=== PATIENT | female | born 2000 | race Caucasian/White ===

== ENCOUNTER 2018-04-13 09:58 | Emergency (ER) | payer BC, SELFPAY ==
[2018-04-13 10:00] VITALS: BP 112/66; PULSE 85; RESP 14; TEMP 37.1; O2SAT 97; BMI 27.4
--- NOTE | 2018-04-13 10:39 | RAD_ITS ---
STUDY: X-RAY - ACUTE ABDOMINAL SERIES REASON FOR EXAM: Female, 17 years old. Abdominal pain, nausea and vomiting TECHNIQUE: Single view of the chest. Supine, and erect view(s) of the abdomen were obtained. COMPARISON: None. FINDINGS: The lungs are clear and expanded. Normal size heart. Normal mediastinum and marta. Normal visualized pulmonary arteries. Normal visualized aortic arch and descending thoracic aorta. There is a non-specific bowel gas pattern. The soft tissue structures of the abdomen and pelvis are unremarkable. Normal visualized osseous structures. RAD/Acute Abdomen Inc Chest IMPRESSION: Normal x-ray examination of the chest, abdomen, and pelvis. Electronically Signed: Flakito Barron DO at 11:42 EST Tel , Service support ,
[2018-04-13 11:04] LABS: Absolute Lymphocyte Count 1.45 X10^3/ul (0.83-4.51); Absolute Neutrophil Count 3.7 X10^3/uL (2.0-7.7); Basophil# 0.02 X10^3/uL; Basophil% 0.3 % (0-1); Eosinophil# 0.06 X10^3/uL; Hematocrit 39.5 % (37-47); Hemoglobin 13.5 g/dl (12.0-15.0); Lymphocyte # 1.45 X10^3/ul (4.0); Lymphocyte % 24.9 % (19-41); Mean Corp Hgb Conc 34.2 g/gl (32-36); Mean Corpuscular Hgb 29.8 pg (27.0-32.0); Mean Corpuscular Volume 87.2 fL (81-99); Mean Platelet Vol. 10.1 fl (6.2-12.0); Monocyte# 0.55 X10^3/uL; Monocyte% 9.5 % (0-10); Neutrophil # 3.73 X10^3/uL (2.7-7.7); Neutrophil % 64.1 % (47-70); Platelet Count 276 K/mm3 (150-450); RBC Distribution Width CV 13.7 % (11.6-14.6); RBC Distribution Width SD 42.7 fl (35.1-43.9); Red Blood Count 4.53 M/mm3 (4.2-5.4); White Blood Count 5.8 K/mm3 (4.4-11.0)
[2018-04-13 11:05] LABS: POSITIVE COUNT NO; POSITIVE DIFFERENTIAL NO; POSITIVE MORPHOLOGY NO
[2018-04-13 11:14] LABS: White Blood Cells 0 SEEN /hpf (0-5)
[2018-04-13 11:14] LABS: Albumin, Serum 3.8 g/dL (3.2-5.0); BUN 14 mg/dL (7-18); BUN/Creat Ratio 16.5 RATIO (10-20); Creatinine, Serum 0.85 mg/dL (0.55-1.02); EST Glomerular Filtration Rate 91 mL/min (>60); Est Glom Filt Rate - Afr Amer 110 mL/min (>60); Estimated Creatinine Clearance 91.93 ml/min; Glucose 80 mg/dL (74-106); Protein, Total 7.3 g/dL (6.4-8.2)
[2018-04-13 11:15] LABS: ALB/GLOB Ratio 1.1 RATIO (0.9-2.4); AST(SGOT) 16 U/L (15-37); Alanine Aminotransfer ALT/SGPT 21 U/L (13-56); Alkaline Phosphatase 83 U/L (45-117); Anion Gap 9 (5-15); Calcium,Total 8.5 mg/dL (8.5-10.1); Chloride 108 mmol/L (98-107); Globulin 3.5 g/dL (2.2-4.2); Lipase 86 U/L (73-393); Potassium 3.3 mmol/L (3.5-5.1); Sodium Level 142 mmol/L (136-145)
[2018-04-13 11:16] LABS: Color, Urine Yellow (Yellow); Glucose, Dipstick Normal (Normal); Leukocyte Esterase-Dipstick Negative /ul (Negative); Nitrite-Dipstick Negative (Negative); Occult Blood-Urine 10 /ul (Negative); Protein-Dipstick 30 mg/dl (Negative); Specific Gravity, Urine 1.025 (1.002-1.030); Urine Bilirubin Dipstick Negative (Negative); Urine Clarity Sl. Cloudy (Clear); Urine Urobilinogen Normal (Normal)
[2018-04-13 11:18] LABS: Internal QC Validated? YES +Cl - CLEAR BKGD; Ketone-Dipstick 150 mg/dl (Negative); Pregnancy, Urine Negative Negative
[2018-04-13 11:22] LABS: Bacteria 1+ /hpf (None Seen); Mucous, Urine 2+ /hpf (<or=2+); Red Blood Cells-Urine 0-5 SEEN /hpf (0-5); Squamous Epithelial Cells - UA 0-5 SEEN /hpf (5-10)
[2018-04-13 12:00] VITALS: BP 95/61; PULSE 58; RESP 12; O2SAT 100
--- NOTE | 2018-04-13 12:54 | ED.VISSUMM ---
- ER Visit Summary Date of Service: 04/13/18 Chief Complaint: Abdominal pain History of Present Illness: The patient is a 17 F who presents with abdominal pain that has been getting worse over the past 3 days. Patient states the pain is over the lower abdomen but worse on the right side. Patient describes the pain as aching. Patient admits to some nausea and vomiting. Patient admits to some watery diarrhea. Patient states she did take some Pepto-Bismol yesterday but vomited shortly afterwards. Patient states she did have an episode of black stools this morning. Patient denies any fevers but admits to subjective chills. Patient admits to some dysuria and urinary frequency. Physical Examination: Vital signs are stable. Patient is afebrile. Patient is in no acute distress. Oral mucosa is pink and moist. Neck is supple. Trachea is midline. There is no JVD noted. Heart was regular rate and rhythm. Lungs are clear and equal bilaterally. Abdomen is soft. There is some mild lower abdominal tenderness. There is no rebound or guarding noted. Cranial nerves II through XII are intact. There are no focal motor or sensory deficits noted. The remaining physical exam is within normal limits. Test Results: Acute abdominal x-rays did not show any acute process. CBC was normal. Basic metabolic profile was within normal limits. Urinalysis does not show any evidence of urinary tract infection. Emergency Department Course and Treatment: Patient felt better on reevaluation. Patient was instructed to start with a liquid diet and advance as tolerated. Patient was instructed to follow-up with her primary care physician in 5-7 days. Patient understood and was agreeable with the plan. All questions were answered. Disposition: Discharge home Impression: Abdominal pain This note was generated with [employer] dictation software. It may contain incorrect words, spelling, and punctuation that were not noted in review of the chart prior to signing ED Disposition - Plan for ED Patient: Disposition: Home or Assisted Living Chief Complaint: Abd Pain Diagnosis: Lower abdominal pain of unknown etiology Instructions: ED Abdominal Pain Unkn Cause Referrals: Manpreet Martinez MD [Primary Care Provider] -
[2018-04-13 13:28] VITALS: BP 95/61; PULSE 56; RESP 16; O2SAT 99
--- OUTSIDE RECORDS SUMMARY | 2018-05-30 06:05 | XMS RPT_ITS ---
:2000 Author Organization OHIP Care Team Providers Name Role Phone KLAUDIA HUGHES ([employer]) Attending Unavailable ZHEN GAMING) Attending Unavailable CURT LOZANO Attending Unavailable KLAUDIA HUGHES ([employer]) Referring Unavailable MERCEDES AGUAYO (YA) Attending Unavailable Royce Kam Attending Unavailable Curt Lozano Primary Care Unavailable PROBLEMS PROBLEMS No Problem Records FoundPROCEDURES PROCEDURES No Procedure Records FoundRESULTS RESULTS PROGRESS Observed: 04/13/2018 Status: COMPLETED Source: [place] 5:44 PM [facility] REPOSITORY O ID: [id number] Author: Danita Yeung Service: (none) Author Type: Physician Pediatric Intensive Physician Type: Progress Notes Filed: 04/13/2018 5:48 PM Note Text: 04/13/2018 No chief complaint on file. SUBJECTIVE: This is a 17 year old that is here today for Complaint(s) of lower abdominal pain x 3-4 days. Overall worsening. + RLQ >left. + nausea, vomiting. + diarrhea, 1 episdoe of black tarry stools- but did take a pepto bismol (however vomited immediately after taking). Denies fever/chills, dysuria, urinary frequency. + diminished appetite. No sick contacts. PAST MEDICAL HISTORY Diagnosis Date - Menarche 11/2009 First menstrual period - PMH - PAST MEDICAL HISTORY OF 06/05 NORMAL COLOR VISION ALLERGIES Patient has no known allergies. MEDICATIONS Current Outpatient Prescriptions: Desogestrel-Ethinyl Estradiol (APRI) 0.15-0.03 mg per tablet Take 1 tablet by mouth once daily. No current facility-administered medications for this visit. SOCIAL HISTORY Social History Marital status: Single Spouse name: Years of education: Number of children: Social History Main Topics Smoking status: Current Some Day Smoker Packs/day: 0.00 Years: 0.00 Smokeless tobacco: Never Used Comment: Mom smokes outside or another room Alcohol use: No Drug use: No Sexual activity: Yes REVIEW OF SYSTEMS All other reviewed and negative other than HPI. OBJECTIVE: LMP 03/24/2018 APPEARANCE alert, in no acute distress, well-hydrated, well nourished. ABDOMEN bowel sounds normoactive, no bruits, soft, + RLQ TTP with rebound. + McBurney's. Negative Kellogg's. Mild LLQ TTP. non-distended, without organomegaly or palpable masses, no tenderness to palpation ASSESSMENT/PLAN: 1. RLQ abdominal pain - ICD9: 789.03, ICD10: R10.31 Differential Diagnosis includes Appendicitis vs gastroenteritis Referral to ER for higher level of care The patient indicates understanding of these issues and agrees with the plan. Mom will take patient. Danita Yeung PA-C EMERGENCY DEPARTMENT Observed: 04/13/2018 Status: F Source: [place] SUMMARY 1:01 PM REPOSITORY [facility] Medical Records Department [address] [place] [id number] Emergency Department Summary 04/13/18 1254 MR#: [id number] Acct: [id number] Name: QUYEN HOWELL Rep #: [id number] : 2000 17 From: Royce Kam DO PCP: Curt Lozano MD Status: REG ER - ER Visit Summary Date of Service: 04/13/18 Chief Complaint: Abdominal pain History of Present Illness: The patient is a 17 F who presents with abdominal pain that has been getting worse over the past 3 days. Patient states the pain is over the lower abdomen but worse on the right side. Patient describes the pain as aching. Patient admits to some nausea and vomiting. Patient admits to some watery diarrhea. Patient states she did take some Pepto-Bismol yesterday but vomited shortly afterwards. Patient states she did have an episode of black stools this morning. Patient denies any fevers but admits to subjective chills. Patient admits to some dysuria and urinary frequency. Physical Examination: Vital signs are stable. Patient is afebrile. Patient is in no acute distress. Oral mucosa is pink and moist. Neck is supple. Trachea is midline. There is no JVD noted. Heart was regular rate and rhythm. Lungs are clear and equal bilaterally. Abdomen is soft. There is some mild lower abdominal tenderness. There is no rebound or guarding noted. Cranial nerves II through XII are intact. There are no focal motor or sensory deficits noted. The remaining physical exam is within normal limits. Test Results: Acute abdominal x-rays did not show any acute process. CBC was normal. Basic metabolic profile was within normal limits. Urinalysis does not show any evidence of urinary tract infection. Emergency Department Course and Treatment: Patient felt better on reevaluation. Patient was instructed to start with a liquid diet and advance as tolerated. Patient was instructed to follow-up with her primary care physician in 5-7 days. Patient understood and was agreeable with the plan. All questions were answered. Disposition: Discharge home Impression: Abdominal pain This note was generated with MagicEvent dictation software. It may contain incorrect words, spelling, and punctuation that were not noted in review of the chart prior to signing ED Disposition - Plan for ED Patient: Disposition: Home or Assisted Living Chief Complaint: Abd Pain Diagnosis: Lower abdominal pain of unknown etiology Instructions: ED Abdominal Pain Unkn Cause Referrals: Curt Lozano MD [Primary Care Provider] - What to do if you have Problems For any increased pain, shortness of breath, bleeding, nausea or vomiting, chest pain, or any unexpected problems, contact your Primary Care Provider. Call [facility] ([phone]) or report to the closest Emergency Room. Call 911 if necessary. 04/13/18 1301 <Electronically signed by Royce Kam DO> Date Royce Kam DO Cosigner Signature (If Indicated): Date CC: Curt Lozano MD URINALYSIS, COMPLETE Collected: 04/13/2018 Status: F Source: [place] 11:03 AM REPOSITORY Order Comment: How was Urine Obtained? CLEAN CATCH TYPE CODE TESTS RESULT OUT OF RANGE REFERENCE UNITS LAB L400.3000 Yellow COLOR Normal Yellow LAB L400.3050 Clear Normal CLARITY Sl. Cloudy LAB L400.3200 Normal mg/dl Normal GLUCOSE, UR Normal LAB L400.3300 Negative mg/dL Normal BILIRUBIN URINE Negative LAB L400.3400 Negative mg/dl High KETONE UR 150 Result Comment: CRITICAL VALUE *H CRITICAL VALUE VERIFIED. CALLED TO PRATIK DEL TORO 04/13/18 1117 Boogie Franks. RESULTS READ BACK BY SAME. LAB L400.3465 1.002-1.030 Normal SP.GR. DIPSTX 1.025 LAB L400.3550 5.0 - 8.0 pH Normal UR 6.0 LAB L400.3600 Negative mg/dl High 30 PROT DIPSTX LAB L400.3700 Normal mg/dl Normal UROBILI Normal LAB L400.3750 Negative Normal NITRITE UR Negative LAB L400.3780 Negative /ul High 10 OCCULT BLOOD-UR LAB L400.3800 Negative /ul Normal LEUK ESTERASE Negative LAB L400.4050 0-5 /hpf 0 Normal WBC SEEN LAB L400.4100 0-5 /hpf Normal RBC-UA 0-5 SEEN LAB L400.4150 5-10 /hpf Normal SQUAM EPI 0-5 SEEN LAB L400.4300 None Seen /hpf 1+ Normal BACTERIA LAB L400.4350 <or=2+ /hpf 2+ Normal MUCUS, URINE Performed By: #### L400.0001 #### [facility] [address] [place], [place], [address] ,URINE Collected: 04/13/2018 Status: F Source: [place] 11:03 AM REPOSITORY TYPE CODE TESTS RESULT OUT OF REFERENCE UNITS RANGE LAB L400.8000 Negative Normal HCGUQUAL Negative Result Comment: Very dilute urine specimens, as indicated by a low specific gravity, may not contain apprenticeship representative levels of hCG. If is still suspected, a first morning urine specimen should be collected 48 hours later and tested. Performed By: #### L400.7600 #### [facility] [address], [address] CBC W/DIFF, AUTOMATED Collected: 04/13/2018 Status: F Source: [place] 10:50 AM REPOSITORY TYPE CODE TESTS RESULT OUT OF RANGE REFERENCE UNITS LAB L100.1000 4.4-11.0 K/mm3 Normal WBC 5.8 LAB L100.1200 4.2-5.4 M/mm3 Normal RBC 4.53 LAB L100.1300 12.0-15.0 g/dl Normal HGB 13.5 LAB L100.1400 37-47 % Normal HCT 39.5 LAB L100.1500 81-99 fL Normal MCV 87.2 LAB L100.1600 27.0-32.0 pg Normal MCH 29.8 LAB L100.1700 32-36 g/gl Normal MCHC 34.2 LAB L100.1810 11.6-14.6 % Normal RDW CV 13.7 LAB L100.1820 35.1-43.9 fl Normal RDW SD 42.7 LAB L100.1900 150-450 K/mm3 Normal PLT 276 LAB L100.2000 6.2-12.0 fl Normal MPV 10.1 LAB L100.2100 47-70 % Normal NEUT% 64.1 LAB L100.2200 19-41 % Normal LY% 24.9 LAB L100.2300 0-10 % Normal MONO% 9.5 LAB L100.2400 0-5 % Normal EO% 1.0 LAB L100.2500 0-1 % Normal BASO% 0.3 LAB L100.2550 0.0-0.9 % Normal IM GRAN % 0.200 Result Comment: IG% - Immature Granulocytes (promyelocytes, myelocytes and metamyelocytes) > 1% indicates that a LEFT SHIFT is Present. LAB L100.2620 2.0-7.7 X10 3/uL Normal Absolute Neut 3.7 LAB L100.2720 0.83-4.51 X10 3/ul Normal Absolute Lymph 1.45 Performed By: #### L100.0100 #### [facility] [address] [place], [place], [address] COMPREHENSIVE METABOLIC Collected: 04/13/2018 Status: F Source: [facility] 10:50 AM REPOSITORY TYPE CODE TESTS RESULT OUT OF RANGE REFERENCE UNITS LAB L501.0100 74-106 mg/dL Normal GLU 80 Result Comment: Please note revised GLUCOSE reference range effective 2017. LAB L501.1000 7-18 mg/dL Normal BUN 14 LAB L501.1100 0.55-1.02 mg/dL Normal CREAT,SERUM 0.85 Result Comment: The validity of the calculated GFR AND GFRAA in patients over 70 years has not been determined. Clinical correlation is essential. LAB L501.1110 >60 mL/min Normal EST GFR 91 Result Comment: Non- GFR Calc LAB L501.1115 >60 mL/min Normal EST GFR - AA 110 Result Comment: GFR Calc LAB L501.1255 ml/min Normal Estimated CRCL 91.93 LAB L501.1300 10-20 RATIO Normal BUN/CRE 16.5 LAB L501.1500 6.4-8. g/dL Normal 2 T PROT 7.3 LAB L501.1800 3.2-5. g/dL Normal 0 ALB 3.8 LAB L501.1950 2.2-4. g/dL Normal 2 GLOB 3.5 LAB L501.2000 0.9-2. RATIO Normal 4 A/G 1.1 LAB L501.2200 8.5-10 mg/dL Normal .1 CA 8.5 LAB L501.4100 15-37 U/L Normal AST 16 LAB L501.4305 45-117 U/L Normal ALK P 83 LAB L501.4405 13-56 U/L Normal ALT 21 LAB L501.4600 0.20-1 mg/dL Normal .00 T BILI 0.50 LAB L501.5300 136-14 mmol/L Normal 5 NA 142 LAB L501.5600 3.5-5. mmol/L Low 1 K 3.3 LAB L501.5900 98-107 mmol/L High CL 108 LAB L501.6100 21.0-3 mmol/L Normal 2.0 CO2 25.0 LAB L501.6200 5-15 Normal GAP 9 Performed By: #### L500.4050, L501.2450 #### [facility] [address] [place], [place], [address] LIPASE Collected: 04/13/2018 Status: F Source: [place] 10:50 AM REPOSITORY TYPE CODE TESTS RESULT OUT OF RANGE REFERENCE UNITS LAB L501.2450 73-393 U/L Normal LIPASE 86 Performed By: #### L500.4050, L501.2450 #### [facility] [address] [place], [address] ACUTE ABDOMEN INC Observed: 04/13/2018 Status: F Source: [place] 10:40 AM [facility] REPOSITORY [facility] Imaging Services [address] [place] [address] Acute Abdomen Inc Chest MR#: [id number] Acct: [id number] Name: QUYEN HOWELL Rep #: [id number] : 2000 F 17 From: Flakito Barron DO PCP: Curt Lozano MD Status: REG ER Study: Acute Abdomen Inc Chest Date of Exam: 04/13/18 Exam# [id number] Ordering Dr: Royce Kam DO STUDY: X-RAY - ACUTE ABDOMINAL SERIES REASON FOR EXAM: Female, 17 years old. Abdominal pain, nausea and vomiting TECHNIQUE: Single view of the chest. Supine, and erect view(s) of the abdomen were obtained. COMPARISON: None. FINDINGS: The lungs are clear and expanded. Normal size heart. Normal mediastinum and marta. Normal visualized pulmonary arteries. Normal visualized aortic arch and descending thoracic aorta. There is a non-specific bowel gas pattern. The soft tissue structures of the abdomen and pelvis are unremarkable. Normal visualized osseous structures. RAD/Acute Abdomen Inc Chest IMPRESSION: Normal x-ray examination of the chest, abdomen, and pelvis. Electronically Signed: Flakito Barron DO at 11:42 EST Tel , Service support , CC: Royce Kam DO; Curt Lozano MD Journe[employer]: Signed CNOV Observed: 04/13/2018 Status: COMPLETED Source: [place] 9:30 AM [facility] REPOSITORY Office Visit (WSTR) SANDRAQUYEN BOYKIN ([id number]) 2000 F Date Time Provider Department 04/13/18 9:30 AM DANITA YEUNG) [facility] During your visit today, we recorded the following information about you: Danita Yeung PA-C 04/13/2018 5:48 PM Signed 04/13/2018 No chief complaint on file. SUBJECTIVE: This is a 17 year old that is here today for Complaint(s) of lower abdominal pain x 3-4 days. Overall worsening. + RLQ >left. + nausea, vomiting. + diarrhea, 1 episdoe of black tarry stools-but did take a pepto bismol (however vomited immediately after taking). Denies fever/chills, dysuria, urinary frequency. + diminished appetite. No sick contacts. PAST MEDICAL HISTORY Diagnosis Date - Menarche 11/2009 First menstrual period - PMH - PAST MEDICAL HISTORY OF 06/05 NORMAL COLOR VISION ALLERGIES Patient has no known allergies. MEDICATIONS Current Outpatient Prescriptions: Desogestrel-Ethinyl Estradiol (APRI) 0.15-0.03 mg per tablet Take 1 tablet by mouth once daily. No current facility-administered medications for this visit. SOCIAL HISTORY Social History Marital status: Single Spouse name: Years of education: Number of children: Social History Main Topics Smoking status: Current Some Day Smoker Packs/day: 0.00 Years: 0.00 Smokeless tobacco: Never Used Comment: Mom smokes outside or another room Alcohol use: No Drug use: No Sexual activity: Yes REVIEW OF SYSTEMS All other reviewed and negative other than HPI. OBJECTIVE: LMP 03/24/2018 APPEARANCE alert, in no acute distress, well-hydrated, well nourished. ABDOMEN bowel sounds normoactive, no bruits, soft, + RLQ TTP with rebound. + McBurney's. Negative Kellogg's. Mild LLQ TTP. non-distended, without organomegaly or palpable masses, no tenderness to palpation ASSESSMENT/PLAN: 1. RLQ abdominal pain - ICD9: 789.03, ICD10: R10.31 Differential Diagnosis includes Appendicitis vs gastroenteritis Referral to ER for higher level of care The patient indicates understanding of these issues and agrees with the plan. Mom will take patient. Danita Yeung PA-C Referring Provider: SELF [[id number]] Allergies As of Date: 04/13/2018 (No Known Allergies) Date Reviewed: 04/07/2018 Reviewed by: Mia Dave LPN - Fully Assessed Primary Visit Diagnosis:RLQ abdominal pain [R10.31] Prescriptions as of 04/13/2018 Sig: DESOGESTREL 0.15 MG-ETHINYL E* Take 1 tablet by mouth once d* Problem List As Of Date 04/13/2018 Noted Resolved Depression with anxiety [F41.8] INVALID FOR* PMDD (premenstrual dysphoric disorder) [F32.81] INVALID FOR* Encounter Status:Closed by DANITA YEUNG PA-C on 04/13/18 PROGRESS Observed: 04/07/2018 Status: COMPLETED Source: [place] 3:14 PM [facility] REPOSITORY O ID: [id number] Author: Mercedes Castillo) [place] Service: (none) Author Type: Nurse Practitioner Type: Progress Notes Filed: 04/07/2018 4:25 PM Note Text: Quyen Howell is a 17 year old, Obstetric History No data available who presents today for contraception. Patient's last menstrual period was 03/24/2018. Periods are regular but having severe PMS the week before and resolving with cycle. She does have some anxiety/depression. PAST MEDICAL HISTORY Diagnosis Date - Menarche 11/2009 First menstrual period - PMH - PAST MEDICAL HISTORY OF 06/05 NORMAL COLOR VISION PAST SURGICAL HISTORY Procedure Laterality Date - NONE Social History Marital status: Single Spouse name: Years of education: Number of children: Social History Main Topics Smoking status: Current Some Day Smoker Packs/day: 0.00 Years: 0.00 Smokeless tobacco: Never Used Comment: Mom smokes outside or another room Alcohol use: No Drug use: No Sexual activity: Yes ALLERGIES No Known Allergies No current outpatient prescriptions on file prior to visit. No current facility-administered medications on file prior to visit. SUBJECTIVE Sexually active: Yes Patient currently interested in: oral contraceptives Date of last test: Not applicable Relevant Past Medical History: No relevant past medical history PHYSICAL EXAMINATION: BP 122/64 Wt 162 lb 3.2 oz (73.6 kg) LMP 03/24/2018 BMI 27.52 kg/m? GENERAL APPEARANCE: Well appearing, alert, in no acute distress, well-hydrated, well nourished. SKIN: Skin color, texture, turgor normal, no suspicious rashes or lesions LUNGS: normal inspiratory rate NEURO: Awake, alert and oriented x 3, Normal gait and No involuntary motions. IMPRESSION: contraceptive counseling and advice, Information of other contraceptive measures, Prescription for oral contraceptives PLAN Hormonal control as prescribed Return to office in 3 months for blood pressure check and follow-up control Contraceptive counseling -will consider adding antidepressed if symptoms are not improved -spend 30 mins of visit counseling pt I have reviewed and updated past medical and surgical history, medications and allergies. JC CoffmanOV Observed: 04/07/2018 Status: COMPLETED Source: [place] 3:00 PM [facility] REPOSITORY Office Visit (WOOB) QUYEN HOWELL ([id number]) 2000 F Date Time Provider Department 04/07/18 3:00 PM MERCEDES AGUAYO (YA) [facility] During your visit today, we recorded the following information about you: Blood pressure Weight Last Period 122/64 73.6 kg 03/24/18 Mercedes Aguayo APRN.CNP 04/07/2018 4:25 PM Signed Quyen Pena Lynda is a 17 year old, Obstetric History No data available who presents today for contraception. Patient's last menstrual period was 03/24/2018. Periods are regular but having severe PMS the week before and resolving with cycle. She does have some anxiety/depression. PAST MEDICAL HISTORY Diagnosis Date - Menarche 11/2009 First menstrual period - PMH - PAST MEDICAL HISTORY OF 06/05 NORMAL COLOR VISION PAST SURGICAL HISTORY Procedure Laterality Date - NONE Social History Marital status: Single Spouse name: Years of education: Number of children: Social History Main Topics Smoking status: Current Some Day Smoker Packs/day: 0.00 Years: 0.00 Smokeless tobacco: Never Used Comment: Mom smokes outside or another room Alcohol use: No Drug use: No Sexual activity: Yes ALLERGIES No Known Allergies No current outpatient prescriptions on file prior to visit. No current facility-administered medications on file prior to visit. SUBJECTIVE Sexually active: Yes Patient currently interested in: oral contraceptives Date of last test: Not applicable Relevant Past Medical History: No relevant past medical history PHYSICAL EXAMINATION: BP 122/64 Wt 162 lb 3.2 oz (73.6 kg) LMP 03/24/2018 BMI 27.52 kg/m? GENERAL APPEARANCE: Well appearing, alert, in no acute distress, well-hydrated, well nourished. SKIN: Skin color, texture, turgor normal, no suspicious rashes or lesions LUNGS: normal inspiratory rate NEURO: Awake, alert and oriented x 3, Normal gait and No involuntary motions. IMPRESSION: contraceptive counseling and advice, Information of other contraceptive measures, Prescription for oral contraceptives PLAN Hormonal control as prescribed Return to office in 3 months for blood pressure check and follow-up control Contraceptive counseling -will consider adding antidepressed if symptoms are not improved -spend 30 mins of visit counseling pt I have reviewed and updated past medical and surgical history, medications and allergies. Mercedes Aguayo APRN.YA Aguayo APRN.CNP 04/07/2018 3:55 PM Signed Oral Contraceptives: The Pill Beginning the Pill Pills come in either a 21 day pack or a 28 day pack. With the 21 day pack you will take one pill for 21 days then no pill for 7 days, during which time you will have what is known as withdrawal bleeding. The 28 day pack allows you to take a pill every day of the cycle with no interruptions. The first 21 pills are the pills with the active ingredients and the last 7 are the nonmedical pills (placebo) or they may contain iron. There will be bleeding during the week you are taking the nonmedical pills. The advantage to the 28 day pack is that you don?t have to keep track of when you stopped the pill. ? Unless otherwise instructed, you should start your pills the Tuesday following your first day of bleeding with your next period (if your period starts on a Tuesday, you should start pills the same day) ? Read your information packet that comes with the pills. Pill Benefits The pill is the most popular method of reversible control being used today. Millions of women rely on oral contraceptives as their control method. It is important to have an examination by your physician to determine if the pill is safe for you. There are several advantages associated with the pill: it is 97-98% effective; may improve acne; periods are more regular and less painful; there is less iron deficiency anemia in pill users. terminal manager use is associated with a decreased incidence of ovarian and uterine cancer. There is also no evidence that the pill increases the incidence of any cancer. How Oral Contraceptives Work Oral contraceptives come in two varieties. One is the combination pill which contains both estrogen and progesterone. Combination pills are considered 98-99% effective in preventing . This pill comes in either monophasic, which delivers the same amount of estrogen and progesterone throughout the cycle; and triphasic, which try tries to mimic the normal hormone cycle by changing the levels of the hormones in the pills during the month. There is no real advantage to taking the one over the other. The other type of pill only contains progesterone. It is best used for women who can?t take estrogen. This type of pill is slightly less effective than the combination pill in preventing . Oral contraceptives prevent ovulation (release of an egg from the ovary) by suppressing the pituitary gland?s action. The pill does NOT prevent sexually transmitted disease. Obtaining a Prescription ? It is important to see your doctor before starting oral contraceptives so that you can have a full medical history taken and a physical examination given. Certain medical conditions may make the pill inappropriate for you, therefore it is very important to be honest and as complete as possible with the information you share with your doctor. The types of predisposing factors which would make the pill a poor choice of control would include: ? History of blood clots ? Stroke ? Serious liver disease or impaired liver function ? Unexplained vaginal bleeding or ? Cancer of the reproductive system ? Active gall bladder disease ? Hypertension Possible Side Effects It can take up to three months for your body to become adjusted to the pill. The more common side effects experienced at this time are: breakthrough spotting or bleeding, which is bleeding at any other time other than when you should be having a period; nausea or vomiting; breast tenderness; and mild fluid retention. There is no penitentiary weight gain with the use of the pill. Breakthrough bleeding is the most common complaint of new pill users. There is no way to predict who will have it and there is no way of preventing it. Breakthrough bleeding usually subsides on its own with no further treatment after the first three months of taking the pill. If these symptoms continue to occur after the first three months you should check with your physician to see if there is any physical cause and possibly change to another control pill. Problems: 1. Missed 1 pill: Take 2 pills the next day. 2. Missed 2 pills: Take 2 pills the next day and 2 pills the following day. Also use another form of control (condoms) along with the pill for the rest of the month. 3. Missed 3 or more pills: You have two choices. You can take two pills each day until you are on schedule, plus use an additional form of control along with the pill for the rest of the month. Or you can stop the pill and start a completely new pack of pills the next Tuesday. You must use another form of control with the pill for at least the first two weeks of the new pack. 4. You?re ill and you have been vomiting or have diarrhea: You must use another form of control with the pill since the pill may not be fully absorbed during your illness. Continue to use the added control until the end of the cycle. 5. Desire to become : Stop using the pill for one month before trying to become . 6. Taking other medications: The control pill is less effective when you take the antibiotic Rifampin, epilepsy (seizure) drugs such as phenytoin, carbamazepine, phenobarbital, topiramate and some medications for HIV. Let your doctor know if you start taking any of these medications while on the pill. Symptoms to Notify Your Doctor with Immediately: 1. Pain in your chest or legs 2. Continuous blurred vision 3. Severe headaches 4. Slurred speech 5. Tingling or weakness on one side of your body 6. Shortness of breath 7. Swelling of one leg Refills of Control Pills You need to see a doctor every year for a refill of your prescription. This is necessary in order that your health can be monitored closely while you are taking control pills. If your prescription should before your next scheduled appointment you can usually get a one month extension from your doctors office if you call during regular business hours about one week before you need to start the new package of pills. This allows the physician to refer to your chart for necessary health information. Referring Provider: SELF [[id number]] Allergies As of Date: 04/07/2018 (No Known Allergies) Date Reviewed: 04/07/2018 Reviewed by: Mia Dave LPN - Fully Assessed Reason for Visit: Discussion [813] Cmt: severe PMS Primary Visit Diagnosis:Encounter for initial prescription of contraceptive pills [Z30.011] Other Visit Diagnosis:PMDD (premenstrual dysphoric disorder) [F32.81] Order(s):Desogestrel-Ethinyl Estradiol (APRI) 0.15-0.03 mg per tabletTake 1 tablet by mouth once daily.Disp: 1 PackageRfl: 3 Prescriptions as of 04/07/2018 Sig: DESOGESTREL 0.15 MG-ETHINYL E* Take 1 tablet by mouth once d* Problem List As Of Date 04/07/2018 Noted Resolved Depression with anxiety [F41.8] INVALID FOR* PMDD (premenstrual dysphoric disorder) [F32.81] INVALID FOR* Other instructions from your clinician: Oral Contraceptives: The Pill Beginning the Pill Pills come in either a 21 day pack or a 28 day pack. With the 21 day pack you will take one pill for 21 days then no pill for 7 days, during which time you will have what is known as withdrawal bleeding. The 28 day pack allows you to take a pill every day of the cycle with no interruptions. The first 21 pills are the pills with the active ingredients and the last 7 are the nonmedical pills (placebo) or they may contain iron. There will be bleeding during the week you are taking the nonmedical pills. The advantage to the 28 day pack is that you don?t have to keep track of when you stopped the pill. ? Unless otherwise instructed, you should start your pills the Tuesday following your first day of bleeding with your next period (if your period starts on a Tuesday, you should start pills the same day) ? Read your information packet that comes with the pills. Pill Benefits The pill is the most popular method of reversible control being used today. Millions of women rely on oral contraceptives as their control method. It is important to have an examination by your physician to determine if the pill is safe for you. There are several advantages associated with the pill: it is 97-98% effective; may improve acne; periods are more regular and less painful; there is less iron deficiency anemia in pill users. terminal manager use is associated with a decreased incidence of ovarian and uterine cancer. There is also no evidence that the pill increases the incidence of any cancer. How Oral Contraceptives Work Oral contraceptives come in two varieties. One is the combination pill which contains both estrogen and progesterone. Combination pills are considered 98-99% effective in preventing . This pill comes in either monophasic, which delivers the same amount of estrogen and progesterone throughout the cycle; and triphasic, which try tries to mimic the normal hormone cycle by changing the levels of the hormones in the pills during the month. There is no real advantage to taking the one over the other. The other type of pill only contains progesterone. It is best used for women who can?t take estrogen. This type of pill is slightly less effective than the combination pill in preventing . Oral contraceptives prevent ovulation (release of an egg from the ovary) by suppressing the pituitary gland?s action. The pill does NOT prevent sexually transmitted disease. Obtaining a Prescription ? It is important to see your doctor before starting oral contraceptives so that you can have a full medical history taken and a physical examination given. Certain medical conditions may make the pill inappropriate for you, therefore it is very important to be honest and as complete as possible with the information you share with your doctor. The types of predisposing factors which would make the pill a poor choice of control would include: ? History of blood clots ? Stroke ? Serious liver disease or impaired liver function ? Unexplained vaginal bleeding or ? Cancer of the reproductive system ? Active gall bladder disease ? Hypertension Possible Side Effects It can take up to three months for your body to become adjusted to the pill. The more common side effects experienced at this time are: breakthrough spotting or bleeding, which is bleeding at any other time other than when you should be having a period; nausea or vomiting; breast tenderness; and mild fluid retention. There is no penitentiary weight gain with the use of the pill. Breakthrough bleeding is the most common complaint of new pill users. There is no way to predict who will have it and there is no way of preventing it. Breakthrough bleeding usually subsides on its own with no further treatment after the first three months of taking the pill. If these symptoms continue to occur after the first three months you should check with your physician to see if there is any physical cause and possibly change to another control pill. Problems: 1. Missed 1 pill: Take 2 pills the next day. 2. Missed 2 pills: Take 2 pills the next day and 2 pills the following day. Also use another form of control (condoms) along with the pill for the rest of the month. 3. Missed 3 or more pills: You have two choices. You can take two pills each day until you are on schedule, plus use an additional form of control along with the pill for the rest of the month. Or you can stop the pill and start a completely new pack of pills the next Tuesday. You must use another form of control with the pill for at least the first two weeks of the new pack. 4. You?re ill and you have been vomiting or have diarrhea: You must use another form of control with the pill since the pill may not be fully absorbed during your illness. Continue to use the added control until the end of the cycle. 5. Desire to become : Stop using the pill for one month before trying to become . 6. Taking other medications: The control pill is less effective when you take the antibiotic Rifampin, epilepsy (seizure) drugs such as phenytoin, carbamazepine, phenobarbital, topiramate and some medications for HIV. Let your doctor know if you start taking any of these medications while on the pill. Symptoms to Notify Your Doctor with Immediately: 1. Pain in your chest or legs 2. Continuous blurred vision 3. Severe headaches 4. Slurred speech 5. Tingling or weakness on one side of your body 6. Shortness of breath 7. Swelling of one leg Refills of Control Pills You need to see a doctor every year for a refill of your prescription. This is necessary in order that your health can be monitored closely while you are taking control pills. If your prescription should before your next scheduled appointment you can usually get a one month extension from your doctors office if you call during regular business hours about one week before you need to start the new package of pills. This allows the physician to refer to your chart for necessary health information. Prescriptions ordered this encounter Disp Refills Start End DESOGESTREL 0.15 MG-ETHINYL ESTRADIO* 1 Pa* 3 04/07/2018 Route: ORAL Sig: Take 1 tablet by mouth once daily. Disposition: Return for 3-4 month med check. Follow-up and Disposition History Recorded Encounter Status:Closed by MERCEDES AGUAYO on 04/07/18 PROGRESS Observed: 02/17/2018 Status: COMPLETED Source: [place] 4:07 PM [facility] REPOSITORY HNO ID: [id number] Author: Jennifer Camilo RN Service: (none) Author Type: Registered Nurse Type: Progress Notes Filed: 02/17/2018 4:11 PM Note Text: Patient presents for reading of PPD test administered 71.5 hours ago. Results: no errythema or induration Jennifer Camilo RN CNNURSE Observed: 02/17/2018 Status: COMPLETED Source: [place] 4:00 PM [facility] REPOSITORY Nurse Visit (PEDSWS) QUYEN HOWELL ([id number]) 2000 F Date Time Provider Department 02/17/18 4:00 PM [facility] During your visit today, we recorded the following information about you: Jennifer Camilo RN, RN 02/17/2018 4:08 PM Signed Patient presents for reading of PPD test administered 71.5 hours ago. Results: no errythema or induration KATEY Santacruz RN, RN 02/17/2018 4:11 PM Signed Patient presents for reading of PPD test administered 71.5 hours ago. Results: no errythema or induration Jennifer Camilo RN Referring Provider: SELF [[id number]] Allergies As of Date: 02/17/2018 (No Known Allergies) Date Reviewed: 01/30/2018 Reviewed by: Simi Emmanuel MA - Fully Assessed Reason for Visit: PPD Read [3594] Cmt: negative Reason For Visit History Recorded Primary Visit Diagnosis:Screening-pulmonary TB [Z11.1] Problem List As Of Date 02/17/2018 Noted Resolved Depression with anxiety [F41.8] INVALID FOR* Visit Notes: >> Jennifer Camilo RN TueFeb 17, 2018 4:06 PM Status: Signed Patient presents for reading of PPD test administered 71.5 hours ago. Results: no errythema or induration Jennifer Camilo RN Letter Text [place] Curt Lozano M.D. Department of Pediatrics [address] [place] [address] February 17, 2018 Quyen Howell 2000 To whom it may concern: PPD negative today. Sincerely, Yoshi Bonilla RN Encounter Status:Closed by JENNIFER CAMILO on 02/17/18 CNNURSE Observed: 02/14/2018 Status: COMPLETED Source: [place] 4:00 PM [facility] REPOSITORY Nurse Visit (PEDSWS) QUYEN HOWELL ([id number]) 2000 F Date Time Provider Department 02/14/18 4:00 PM NURSE/[facility] P[facility] During your visit today, we recorded the following information about you: Referring Provider: SELF [[id number]] Allergies As of Date: 02/14/2018 (No Known Allergies) Date Reviewed: 01/30/2018 Reviewed by: Simi Emmanuel MA - Fully Assessed Primary Visit Diagnosis:Encounter for screening for respiratory tuberculosis [Z11.1] Order(s):PPD (TB INTRADERMAL 90053) B/O [1385620] Order #: [id number] Problem List As Of Date 02/14/2018 Noted Resolved Depression with anxiety [F41.8] INVALID FOR* Encounter Status:Closed by SIMI EMMANUEL MA on 02/14/18 PROGRESS Observed: 01/30/2018 Status: COMPLETED Source: [place] 4:42 PM [facility] REPOSITORY HNO ID: [id number] Author: Simi Emmanuel MA Service: (none) Author Type: (none) Type: Progress Notes Filed: 02/10/2018 7:04 PM Note Text: 17 year old female here for INACTIVATED INFLUENZA VACCINE. [id number] Season Patient is identified by name and date of : Yes [] CONTRAINDICATIONS color enhanced section Age less than 6 months? No Allergy to eggs, chicken, chicken feathers, or chicken dander? No Allergy to thimerosal (a preservative) or formaldehyde, gelatin? No History of severe reaction to any vaccine component or a previous dose of influenza vaccination? No History of Guillain-Topmost Syndrome within 6 weeks after a previous influenza vaccine? No Patient is not moderately or severely ill? No Current temperature greater or equal to 100.4F? No History of Bone Marrow Transplant prior 6 months or solid organ transplant in the past 3 months ? No History of fainting after a prior injection or medical procedure? No- ? If patient has fainted in the past, the CDC recommends sitting or lying down for 15 minutes after the vaccination. [] VERIFICATION color enhanced section Was the answer Yes for any of the above contraindications? No contraindications present. Acceptable to proceed with vaccine. Patient/guardian agrees the above answers are true to the best of their knowledge? Yes Flu vaccine information sheet given? Yes [facility] of immunizations adminstered today. Simi Emmanuel MA Patient age: [age] year old For The 3157-4300 Flu Season 6-35 months old: Fluzone 0.25 ml - IM (Preservative Free) 3 years of age: Fluzone 0.5 ml - IM (Preservative Free) 3 years and older: Fluzone 0.5 ml- IM-(with Preservatives) 65+ years old: 2-49 years old Fluzone High-Dose 0.5 ml - IM (Preservative Free) FLUMIST- intranasal REMEMBER: If patient is less than 9 years of age and this is the first vaccine of Influenza to be received in any flu season, they should receive a second dose in one months time. PROGRESS Observed: 01/30/2018 Status: COMPLETED Source: [place] 4:00 PM [facility] REPOSITORY HNO ID: [id number] Author: Curt Lozano Service: (none) Author Type: Physician Type: Progress Notes Filed: 02/10/2018 7:04 PM Note Text: 17-year-old female with a history of depression presents to the office today for concerns of mood. Has graduated high school States she is feeling very anxious about her future Recently lost her grandfather very quickly and acutely to ALS PHQ-9: 8 Andrade anxiety inventory: 36 Andrade depression inventory: 27 ACTIVE PROBLEM LIST Depression With Anxiety PAST MEDICAL HISTORY Diagnosis Date - Menarche 11/2009 First menstrual period - PMH - PAST MEDICAL HISTORY OF 06/05 NORMAL COLOR VISION PAST SURGICAL HISTORY Procedure Laterality Date - NONE ALLERGIES No Known Allergies 01/30/18 1551 BP: 110/74 Pulse: 84 Resp: 18 Temp: 36.7 ?C (98 ?F) TempSrc: Temporal Artery Weight: 69.6 kg (153 lb 8 oz) GENERAL: alert and active in no apparent distress Impression: (F43.23) Adjustment disorder with mixed anxiety and depressed mood (primary encounter diagnosis) (Z23) Need for vaccination Plan: Office Visit on 01/30/18 -INFLUENZA VACCINE QUADRIVALENT AGE 3 YRS PLUS + IM Recommended local therapists, handout with phone numbers provided Curt Lozano MD [facility] Department of Pediatrics, [facility] CNOV Observed: 01/30/2018 Status: COMPLETED Source: [place] 4:00 PM [facility] REPOSITORY Office Visit (PEDSWS) QUYEN HOWELL ([id number]) 2000 F Date Time Provider Department 01/30/18 4:00 PM CURT LOZANO PEDSWS During your visit today, we recorded the following information about you: Temperature Pulse Respiration Blood pressure 98 degrees 84/minute 18/minute 110/74 Weight 69.6 kg Curt Lozano MD 02/10/2018 7:04 PM Signed 17-year-old female with a history of depression presents to the office today for concerns of mood. Has graduated high school States she is feeling very anxious about her future Recently lost her grandfather very quickly and acutely to ALS PHQ-9: 8 Andrade anxiety inventory: 36 Andrade depression inventory: 27 ACTIVE PROBLEM LIST Depression With Anxiety PAST MEDICAL HISTORY Diagnosis Date - Menarche 11/2009 First menstrual period - PMH - PAST MEDICAL HISTORY OF 06/05 NORMAL COLOR VISION PAST SURGICAL HISTORY Procedure Laterality Date - NONE ALLERGIES No Known Allergies 01/30/18 1551 BP: 110/74 Pulse: 84 Resp: 18 Temp: 36.7 ?C (98 ?F) TempSrc: Temporal Artery Weight: 69.6 kg (153 lb 8 oz) GENERAL: alert and active in no apparent distress Impression: (F43.23) Adjustment disorder with mixed anxiety and depressed mood (primary encounter diagnosis) (Z23) Need for vaccination Plan: Office Visit on 01/30/18 -INFLUENZA VACCINE QUADRIVALENT AGE 3 YRS PLUS + IM Recommended local therapists, handout with phone numbers provided Curt Lozano MD [facility] Department of Pediatrics, [facility] Simi Emmanuel MA 02/10/2018 7:04 PM Signed 17 year old female here for INACTIVATED INFLUENZA VACCINE. [id number] Season Patient is identified by name and date of : Yes [] CONTRAINDICATIONS color enhanced section Age less than 6 months? No Allergy to eggs, chicken, chicken feathers, or chicken dander? No Allergy to thimerosal (a preservative) or formaldehyde, gelatin? No History of severe reaction to any vaccine component or a previous dose of influenza vaccination? No History of Guillain-Topmost Syndrome within 6 weeks after a previous influenza vaccine? No Patient is not moderately or severely ill? No Current temperature greater or equal to 100.4F? No History of Bone Marrow Transplant prior 6 months or solid organ transplant in the past 3 months ? No History of fainting after a prior injection or medical procedure? No- ? If patient has fainted in the past, the CDC recommends sitting or lying down for 15 minutes after the vaccination. [] VERIFICATION color enhanced section Was the answer Yes for any of the above contraindications? No contraindications present. Acceptable to proceed with vaccine. Patient/guardian agrees the above answers are true to the best of their knowledge? Yes Flu vaccine information sheet given? Yes [facility] of immunizations adminstered today. Simi Emmanuel MA Patient age: [age] year old For The 7902-4149 Flu Season 6-35 months old: Fluzone 0.25 ml - IM (Preservative Free) 3 years of age: Fluzone 0.5 ml - IM (Preservative Free) 3 years and older: Fluzone 0.5 ml- IM-(with Preservatives) 65+ years old: 2-49 years old Fluzone High-Dose 0.5 ml - IM (Preservative Free) FLUMIST- intranasal REMEMBER: If patient is less than 9 years of age and this is the first vaccine of Influenza to be received in any flu season, they should receive a second dose in one months time. Referring Provider: KLAUDIA HUGHES ([employer]) [[id number]] Allergies As of Date: 01/30/2018 (No Known Allergies) Date Reviewed: 01/30/2018 Reviewed by: Simi Emmanuel MA - Fully Assessed Reason for Visit: Discussion [813] Cmt: depression, anxiety Imm/Inj [58] Cmt: flu vaccine Imm/Inj [58] Cmt: Flu Vaccine Reason For Visit History Recorded Primary Visit Diagnosis:Adjustment disorder with mixed anxiety and depressed mood [F43.23] Other Visit Diagnosis:Need for vaccination [Z23] Order(s):INFLUENZA VACCINE QUADRIVALENT AGE 3 YRS PLUS + IM [[id number]] Order #: [id number] Problem List As Of Date 01/30/2018 Noted Resolved Depression with anxiety [F41.8] INVALID FOR* Medications Discontinued During This Encounter FLUoxetine HCl (PROZAC) 40 mg capsule 30 c* 6 04/15/2016 01/30/2018 Si tablet by mouth at bedtime Patient not taking: Reported on 01/30/2018 Disc: Discontinued by Patient Encounter Status:Closed by CURT LOZANO MD on 02/10/18 CNOV Observed: 01/28/2018 Status: COMPLETED Source: [place] 11:45 AM [facility] REPOSITORY Office Visit (PEDSWS) QUYEN HOWELL ([id number]) 2000 F Date Time Provider Department 01/28/18 11:45 AM [facility]) PEDSWS During your visit today, we recorded the following information about you: Jerald Bowman LPN 01/28/2018 11:15 AM Signed pt here for tb read only. Jerald Bowman LPN Referring Provider: SELF [[id number]] Allergies As of Date: 01/28/2018 (No Known Allergies) Date Reviewed: 01/25/2018 Reviewed by: Klaudia Celis (Rosey) Elias - Fully Assessed Primary Visit Diagnosis:Screening-pulmonary TB [Z11.1] Prescriptions as of 01/28/2018 Sig: FLUOXETINE 40 MG CAPSULE 1 tablet by mouth at bedtime Problem List As Of Date 01/28/2018 Noted Resolved Depression with anxiety [F41.8] INVALID FOR* Encounter Status:Closed by JERALD BOWMAN LPN on 01/28/18 PROGRESS Observed: 01/28/2018 Status: COMPLETED Source: [place] 11:14 AM [facility] REPOSITORY HNO ID: [id number] Author: Jerald Bowman LPN Service: (none) Author Type: (none) Type: Progress Notes Filed: 01/28/2018 11:15 AM Note Text: pt here for tb read only. Jerald Bowman LPN PROGRESS Observed: 01/25/2018 Status: COMPLETED Source: [place] 12:56 PM [facility] HNO ID: [id number] Author: Klaudia Hughes Service: (none) Author Type: Nurse Practitioner Type: Progress Notes Filed: 01/25/2018 2:08 PM Note Text: 17 year old female presents for a routine 12+ year check-up. [] GENERAL QUESTIONS color enhanced section Patient concerns: NONE Parental concerns: N/A Diet: milk: 1%; poorly balanced diet ; specific issues: NONE Stools: NORMAL (soft and appropriately sized) Urine: NO PROBLEMS Fluoride Water: uses significant amount of [employer] water from: [employer] PWS - deficient (use recommendations for levels of <0.3 ppm), fluoride level: 0.13 ppm (2011 testing) Prescription: age 17+ years - no fluoride supplement indicated Ongoing subspecialty care: NONE Ongoing ancillary care: NONE School/etc: [employer] soon, doing well, grades B. Interests AND Activities: NONE Significant stresses: No [] SPORTS QUESTIONS color enhanced section History of seizures: No History of concussion: No History of syncope: No History of heart problems: No History of hypertension: No History of asthma: No History of single kidney: No History of skeletal problems: No History of any significant injury: Yes dog bite Family history of either heart problems or sudden <age 40 years: No MEDICAL HISTORY Past medical history: IMPORTED PAST MEDICAL HISTORY Diagnosis Date - Menarche 11/2009 First menstrual period - PMH - PAST MEDICAL HISTORY OF 06/05 NORMAL COLOR VISION IMPORTED PAST SURGICAL HISTORY Procedure Laterality Date - NONE Family history: IMPORTED FAMILY HISTORY Problem Relation Age of Onset - Hypertension Mother - Hypertension Maternal Grandmother - other (ALS) Paternal Grandfather - Diabetes Other adult onset diabetes runs in the family GYNECOLOGICAL HISTORY Menarche: 9 Periods are: regular q 28-30 days [] SOCIAL HISTORY color enhanced section Sexual activity: Yes, details: multiple partners; contraception: oral contraceptives Substance abuse and smoking: Yes, details: cigarettes High risk behaviors: NONE Mental health: POSITIVE OUTLOOK Social history obtained when patient was alone [] MISCELLANEOUS color enhanced section Difficulties with learning for patient: No VISION AND HEARING ASSESSMENT Eye doctor visit within the past year: No Vision: Correction: NONE, As tested: NONE Acuity: RIGHT: 20/ 15 LEFT: 20/ 15 Color Vision: normal on (date): 2003 Hearing concerns: No [] ADDITIONAL NURSING COMMENTS color enhanced section None Suha Fausto [employer] PHQ-9 reviewed and Positive--will refer to PCP (is on Zoloft, but still having symptoms) PHYSICAL EXAM (to re-import BP% use .BPFA) Blood pressure: Blood pressure percentiles are 63.5 % systolic and 20.3 % diastolic based on the November 2016 AAP Clinical Practice Guideline. General: alert and active in no apparent distress Head: normal Eyes: conjunctivae/corneas clear. PERRL, EOM's intact. Ears: External ears normal. Canals clear. TM's normal. Nose: Nares normal. Septum midline. Mucosa normal. Oropharynx: Lips, mucosa, and tongue normal. Teeth and gums normal. Oropharynx normal. Neck: Neck supple, no adenopathy; thyroid symmetric, normal size Back: Back symmetric, no curvature. Lungs: Lungs clear to auscultation. Heart: RRR , Normal S1 and S2.,No murmurs Breast: Harpreet stage V, no abnormality noted by hx Abdomen: Abdomen soft, non-tender. BS normal. No masses, organomegaly Genitalia: FEMALE: External genitalia normal by hx, Harpreet stage V Extremities: Extremities normal. No deformities, edema, or skin discolora Musculoskeletal: Extremities with FROM and no problems identified. Neuro: No focal deficits or abnormal findings present Skin: No significant lesions [] ASSESSMENT color enhanced section Well patient Normal growth Issues: Positive Depression Screen PLAN Plan per orders. To see PCP for Anxiety/Depression Mental health emergency numbers given (no thoughts of harming self or others) Counseling: seat belts, bike AND motorcycle helmets, water safety, sunscreen power tools, firearms exercise, sports safety 2% (or less) milk, balanced diet, limit sugar and high fat foods dental care adequate sleep, limit TV / video and computer games social interactions with family and peers school issues drug, alcohol and tobacco use sexual activity and control mental health and abuse / domestic violence issues Forms filled out: [employer] program form (needs PPD read in 48 hrs) Follow up visit in 1 year for routine care or prn with concerns. I have reviewed the above nursing obtained HPI and I concur. Klaudia Hughes APRN.ENVIRONMENTAL RESTORATION PLANNER CNOV Observed: 01/25/2018 Status: COMPLETED Source: [place] 12:45 PM [facility] REPOSITORY Office Visit (PEDSWS) QUYEN HOWELL ([id number]) 2000 F Date Time Provider Department 01/25/18 12:45 PM KLAUDIA HUGHES ([employer]) PEDSWS During your visit today, we recorded the following information about you: Temperature Pulse Respiration Blood pressure 97.3 degrees 84/minute 16/minute 116/60 Weight Height Last Period 69.9 kg 1.635 m 01/16/18 Klaudia Hughes APRN.ENVIRONMENTAL RESTORATION PLANNER 01/25/2018 2:08 PM Signed 17 year old female presents for a routine 12+ year check-up. [] GENERAL QUESTIONS color enhanced section Patient concerns: NONE Parental concerns: N/A Diet: milk: 1%; poorly balanced diet ; specific issues: NONE Stools: NORMAL (soft and appropriately sized) Urine: NO PROBLEMS Fluoride Water: uses significant amount of city water from: [facility] PWS - deficient (use recommendations for levels of <0.3 ppm), fluoride level: 0.13 ppm (2011 testing) Prescription: age 17+ years - no fluoride supplement indicated Ongoing subspecialty care: NONE Ongoing ancillary care: NONE School/etc: [employer] school soon, doing well, grades B. Interests AND Activities: NONE Significant stresses: No [] SPORTS QUESTIONS color enhanced section History of seizures: No History of concussion: No History of syncope: No History of heart problems: No History of hypertension: No History of asthma: No History of single kidney: No History of skeletal problems: No History of any significant injury: Yes dog bite Family history of either heart problems or sudden <age 40 years: No MEDICAL HISTORY Past medical history: IMPORTED PAST MEDICAL HISTORY Diagnosis Date - Menarche 11/2009 First menstrual period - PMH - PAST MEDICAL HISTORY OF 06/05 NORMAL COLOR VISION IMPORTED PAST SURGICAL HISTORY Procedure Laterality Date - NONE Family history: IMPORTED FAMILY HISTORY Problem Relation Age of Onset - Hypertension Mother - Hypertension Maternal Grandmother - other (ALS) Paternal Grandfather - Diabetes Other adult onset diabetes runs in the family GYNECOLOGICAL HISTORY Menarche: 9 Periods are: regular q 28-30 days [] SOCIAL HISTORY color enhanced section Sexual activity: Yes, details: multiple partners; contraception: oral contraceptives Substance abuse and smoking: Yes, details: cigarettes High risk behaviors: NONE Mental health: POSITIVE OUTLOOK Social history obtained when patient was alone [] MISCELLANEOUS color enhanced section Difficulties with learning for patient: No VISION AND HEARING ASSESSMENT Eye doctor visit within the past year: No Vision: Correction: NONE, As tested: NONE Acuity: RIGHT: 20/ 15 LEFT: 20/ 15 Color Vision: normal on (date): 2003 Hearing concerns: No [] ADDITIONAL NURSING COMMENTS color enhanced section None Suha Lambert LPN PHQ-9 reviewed and Positive--will refer to PCP (is on Zoloft, but still having symptoms) PHYSICAL EXAM (to re-import BP% use .BPFA) Blood pressure: Blood pressure percentiles are 63.5 % systolic and 20.3 % diastolic based on the November 2016 AAP Clinical Practice Guideline. General: alert and active in no apparent distress Head: normal Eyes: conjunctivae/corneas clear. PERRL, EOM's intact. Ears: External ears normal. Canals clear. TM's normal. Nose: Nares normal. Septum midline. Mucosa normal. Oropharynx: Lips, mucosa, and tongue normal. Teeth and gums normal. Oropharynx normal. Neck: Neck supple, no adenopathy; thyroid symmetric, normal size Back: Back symmetric, no curvature. Lungs: Lungs clear to auscultation. Heart: RRR , Normal S1 and S2.,No murmurs Breast: Harpreet stage V, no abnormality noted by hx Abdomen: Abdomen soft, non-tender. BS normal. No masses, organomegaly Genitalia: FEMALE: External genitalia normal by hx, Harpreet stage V Extremities: Extremities normal. No deformities, edema, or skin discolora Musculoskeletal: Extremities with FROM and no problems identified. Neuro: No focal deficits or abnormal findings present Skin: No significant lesions [] ASSESSMENT color enhanced section Well patient Normal growth Issues: Positive Depression Screen PLAN Plan per orders. To see PCP for Anxiety/Depression Mental health emergency numbers given (no thoughts of harming self or others) Counseling: seat belts, bike AND motorcycle helmets, water safety, sunscreen power tools, firearms exercise, sports safety 2% (or less) milk, balanced diet, limit sugar and high fat foods dental care adequate sleep, limit TV / video and computer games social interactions with family and peers school issues drug, alcohol and tobacco use sexual activity and control mental health and abuse / domestic violence issues Forms filled out: [employer] program form (needs PPD read in 48 hrs) Follow up visit in 1 year for routine care or prn with concerns. I have reviewed the above nursing obtained HPI and I concur. Klaudia Hughes APRN.ENVIRONMENTAL RESTORATION PLANNER Klaudia Hughes APRN.ENVIRONMENTAL RESTORATION PLANNER 01/25/2018 1:50 PM Signed Reviewed results of visit w/ patient/parent. Verbalize understanding. Valarie Yates 01/26/2018 2:27 PM Signed ~Scheduled 30 min depression / anxiety appointment with pcp on 01/118 @ 4:00 Valarie Yates Referring Provider: SELF [[id number]] Allergies As of Date: 01/25/2018 (No Known Allergies) Date Reviewed: 01/25/2018 Reviewed by: Klaudia Hughes - Fully Assessed Reason for Visit: Physical [83] Primary Visit Diagnosis:Encounter for routine child health examination with abnormal findings [Z00.121] Other Visit Diagnosis:Positive depression screening [Z13.89] Order(s):PPD (TB INTRADERMAL 32373) B/O [0308124] Order #: [id number] Prescriptions as of 01/25/2018 Sig: FLUOXETINE 40 MG CAPSULE 1 tablet by mouth at bedtime Problem List As Of Date 01/25/2018 Noted Resolved Depression with anxiety [F41.8] INVALID FOR* Other instructions from your clinician: Reviewed results of visit w/ patient/parent. Verbalize understanding. Visit Notes: >> Valarie Yates Mila Jan 26, 2018 2:25 PM Status: Signed ~Scheduled 30 min depression / anxiety appointment with pcp on 01/118 @ 4:00 Valarie Yates Medications Discontinued During This Encounter rizatriptan (MAXALT) 10 mg tablet 8 ta* 0 07/15/2016 01/25/2018 Route: ORAL Sig: Take 1 tablet by mouth as needed. May repeat in 2 hours if needed Patient not taking: Reported on 01/25/2018 Disc: Reason for discontinue is not on file. ondansetron orally disintegrating (Z* 10 t* 0 07/15/2016 01/25/2018 Route: ORAL Sig: Take 1 tablet by mouth every 12 hours as needed for Nausea/Vomiting (or migraine). Patient not taking: Reported on 01/25/2018 Disc: Reason for discontinue is not on file. Drospirenone-Ethinyl Estradiol (TITI,* 3 Pa* 3 2016 01/25/2018 Route: ORAL Sig: Take 1 tablet by mouth once daily. Patient not taking: Reported on 01/25/2018 Disc: Reason for discontinue is not on file. Follow-up and Disposition History Recorded Questionnaire: PED PHQ 9 1. Feeling down, depressed, irritable or hopeless? -> 3 - Nearly Every Day 2. Little interest or pleasure in doing things? -> 1 - Several Days 3. Trouble falling asleep, staying asleep, or sleeping too much? -> 1 - Several Days 4. Poor appetite, weight loss, or overeating? -> 1 - Several Days 5. Feeling tired or little energy? -> 1 - Several Days 6. Feeling bad about yourself-or feeling that you are a failure or that you have let yourself or your family down? -> 1 - Several Days 7. Trouble concentrating on things like school work, reading or watching TV? -> 0 - No- t At All 8. Moving or speaking so slowly that other people could have notices? Or the opposite-being so fidgety or restless that you were moving around a lot more than usual? -> 0 - Not At All 9. Thoughts that you would be better off or of hurting yourself in some way? -> 0 - Not At All 10. In the past year have you felt depressed or sad most days, even if you felt okay sometimes? -> Yes 11. If you are experiencing any of the problems listed on this questionnaire, how difficult have these problems made it for you to do your work, take care of things at home or get along with other people? -> Somewhat difficult 12. Has there been a time in the past month when you have had serious thoughts about ending your life? -> No 13. Have you ever tried to kill yourself or made a suicide attempt? -> No SCORE -> 8 Total Score: Depression Severity -> 05-09=Mild depression Questionnaire: PED SOCIAL HLTH TOOL In the last 3 months, were you ever worried your food would run out before you could buy more? -> No In the last 12 months, has it been hard for you to pay any of these bills: Utility, Housing, Car, and Medical? -> No Are you worried that in the next 2 months, you may not have stable housing? -> No In the last 12 months, have you needed to see a doctor but could not because of the cost? -> No In the last 12 months, have you ever had to go without health care because you didn?t have a way to get there? -> No Do you ever need help reading hospital materials? -> No Are you afraid you might be hurt in your apartment building or house? -> No If you checked YES to any boxes above, would you like to receive assistance with any of these needs? -> No Are any of your needs urgent? (For example: I don?t have food tonight, I don?t have a place to sleep tonight) -> No Over the past 2 weeks, have you had little interest or pleasure in doing things? -> Several days Over the past 2 weeks have you felt down, depressed or hopeless? -> Nearly every day Encounter Status:Closed by KLAUDIA HUGHES CNP on 01/25/18 GROUP A STREP BY Collected: 05/26/2017 Status: F Source: [place] PCR 5:51 PM [facility] REPOSITORY TYPE CODE TESTS RESULT OUT OF REFERENCE UNITS RANGE LAB [facility] Throat Swab GAS Specimen Source LAB PCRGAS Negative for Group A Strep Group A PCR Streptococcus by PCR. Result Comment: This test was developed and its performance characteristics determined by [facility] [place] ([facility] It has not been cleared or approved by the FDA. [facility] is regulated under CLIA as qualified to perform high-complexity testing. This test is used for clinical purposes. It should not be regarded as inv estigational or for research. Performed By: #### [facility]AS[facility] #### [facility] [address], [place] [address] PROGRESS Observed: 05/26/2017 Status: COMPLETED Source: [place] 3:03 PM [facility] [place] REPOSITORY HNO ID: [id number] Author: Randi Galicia Service: (none) Author Type: Nurse Practitioner Type: Progress Notes Filed: 05/26/2017 3:15 PM Note Text: HPI Quyen Howell is a 17 year old female who presents with sore throat, swollen glands, headache, body aches and fever since this morning. She states she has white spots on her tonsils. She denies associated URI symptoms. She has taken ibuprofen. Review of Systems Constitutional: Positive for chills and fever. HENT: Positive for sore throat. Negative for congestion. Respiratory: Negative. Negative for cough. Gastrointestinal: Negative for abdominal pain, diarrhea, nausea and vomiting. Musculoskeletal: Positive for myalgias. Neurological: Positive for headaches. BP 108/62 Pulse 98 Temp 38.4 ?C (101.1 ?F) (Tympanic) Resp 18 Wt 59.9 kg (132 lb) PAST MEDICAL HISTORY Diagnosis Date - Menarche 11/2009 First menstrual period - PMH - PAST MEDICAL HISTORY OF 06/05 NORMAL COLOR VISION PAST SURGICAL HISTORY Procedure Laterality Date - NONE ALLERGIES Review of patient's allergies indicates no known allergies. MEDICATIONS rizatriptan (MAXALT) 10 mg tablet Take 1 tablet by mouth as needed. May repeat in 2 hours if needed ondansetron orally disintegrating (ZOFRAN ODT) 8 mg disintegrating tablet Take 1 tablet by mouth every 12 hours as needed for Nausea/Vomiting (or migraine). Drospirenone-Ethinyl Estradiol (TITI, 28,) 3-0.02 mg per tablet Take 1 tablet by mouth once daily. FLUoxetine HCl (PROZAC) 40 mg capsule 1 tablet by mouth at bedtime Drospirenone-Ethinyl Estradiol (TITI 28) 3-0.02 mg per tablet Take 1 tablet by mouth once daily. FAMILY HISTORY Problem Relation Age of Onset - Diabetes adult onset diabetes runs in the family Social History Substance Use Topics - Smoking status: Passive Smoke Exposure - Never Smoker - Smokeless tobacco: Never Used Comment: Mom smokes outside or another room - Alcohol use No Physical Exam Constitutional: She is well-developed, well-nourished, and in no distress. HENT: Head: Normocephalic. Right Ear: Tympanic membrane, external ear and ear canal normal. Left Ear: Tympanic membrane, external ear and ear canal normal. Nose: Nose normal. No rhinorrhea. Mouth/Throat: Uvula is midline and mucous membranes are normal. Mucous membranes are not pale and not dry. Oropharyngeal exudate, posterior oropharyngeal edema and posterior oropharyngeal erythema present. No tonsillar abscesses. Eyes: Conjunctivae are normal. Right eye exhibits no discharge. Left eye exhibits no discharge. Neck: Neck supple. Cardiovascular: Normal rate, regular rhythm and normal heart sounds. Pulmonary/Chest: Effort normal and breath sounds normal. No respiratory distress. She has no wheezes. Lymphadenopathy: She has cervical adenopathy. Neurological: She is alert. Skin: Skin is warm and dry. No rash noted. Nursing note and vitals reviewed. ASSESSMENT/PLAN: 1. Sore throat - ICD9: 462, ICD10: J02.9 (primary diagnosis) - suspect strep - Rapid Strep negative in the office today and Throat culture pending - Amoxicillin for 10 days. - Discussed supportive care treatment with fluids, rest and analgesia. - The patient may also use warm salt water gargles, throat lozenges and/or OTC throat spray as needed. - Contagious dz precautions discussed- including considered contagious until on antibiotics for 24 hours - Call back if drooling, increased temperature, symptoms of dehydration and/or still sick in one week - RAPID STREP TEST B/O - GROUP A STREPTOCOCCUS BY PCR 2. Tonsillitis - ICD9: 463, ICD10: J03.90 - will treat based on symptoms and exam findings consistent for strep. - Follow-up with your PCP in 3-5 days if symptoms have not improved or sooner if symptoms worsen - Discussed red flags and need for immediate medical evaluation if any occur. - Discussed supportive care treatment with fluids, rest and analgesia. - Discussed expected course of illness Randi Galicia CNP CNOV Observed: 05/26/2017 Status: COMPLETED Source: [place] 2:30 PM [facility] REPOSITORY Office Visit (WSTR) QUYEN HOWELL ([id number]) 2000 F Date Time Provider Department 05/26/17 2:30 PM RANDI GALICIA (YA) [facility] During your visit today, we recorded the following information about you: Temperature Pulse Respiration Blood pressure 101.1 degrees 98/minute 18/minute 108/62 Weight 59.9 kg Randi Galicia CNP 05/26/2017 3:15 PM Signed HPI Quyen Pena Lynda is a 17 year old female who presents with sore throat, swollen glands, headache, body aches and fever since this morning. She states she has white spots on her tonsils. She denies associated URI symptoms. She has taken ibuprofen. Review of Systems Constitutional: Positive for chills and fever. HENT: Positive for sore throat. Negative for congestion. Respiratory: Negative. Negative for cough. Gastrointestinal: Negative for abdominal pain, diarrhea, nausea and vomiting. Musculoskeletal: Positive for myalgias. Neurological: Positive for headaches. BP 108/62 Pulse 98 Temp 38.4 ?C (101.1 ?F) (Tympanic) Resp 18 Wt 59.9 kg (132 lb) PAST MEDICAL HISTORY Diagnosis Date - Menarche 11/2009 First menstrual period - PMH - PAST MEDICAL HISTORY OF 06/05 NORMAL COLOR VISION PAST SURGICAL HISTORY Procedure Laterality Date - NONE ALLERGIES Review of patient's allergies indicates no known allergies. MEDICATIONS rizatriptan (MAXALT) 10 mg tablet Take 1 tablet by mouth as needed. May repeat in 2 hours if needed ondansetron orally disintegrating (ZOFRAN ODT) 8 mg disintegrating tablet Take 1 tablet by mouth every 12 hours as needed for Nausea/Vomiting (or migraine). Drospirenone-Ethinyl Estradiol (TITI, 28,) 3-0.02 mg per tablet Take 1 tablet by mouth once daily. FLUoxetine HCl (PROZAC) 40 mg capsule 1 tablet by mouth at bedtime Drospirenone-Ethinyl Estradiol (TITI 28) 3-0.02 mg per tablet Take 1 tablet by mouth once daily. FAMILY HISTORY Problem Relation Age of Onset - Diabetes adult onset diabetes runs in the family Social History Substance Use Topics - Smoking status: Passive Smoke Exposure - Never Smoker - Smokeless tobacco: Never Used Comment: Mom smokes outside or another room - Alcohol use No Physical Exam Constitutional: She is well-developed, well-nourished, and in no distress. HENT: Head: Normocephalic. Right Ear: Tympanic membrane, external ear and ear canal normal. Left Ear: Tympanic membrane, external ear and ear canal normal. Nose: Nose normal. No rhinorrhea. Mouth/Throat: Uvula is midline and mucous membranes are normal. Mucous membranes are not pale and not dry. Oropharyngeal exudate, posterior oropharyngeal edema and posterior oropharyngeal erythema present. No tonsillar abscesses. Eyes: Conjunctivae are normal. Right eye exhibits no discharge. Left eye exhibits no discharge. Neck: Neck supple. Cardiovascular: Normal rate, regular rhythm and normal heart sounds. Pulmonary/Chest: Effort normal and breath sounds normal. No respiratory distress. She has no wheezes. Lymphadenopathy: She has cervical adenopathy. Neurological: She is alert. Skin: Skin is warm and dry. No rash noted. Nursing note and vitals reviewed. ASSESSMENT/PLAN: 1. Sore throat - ICD9: 462, ICD10: J02.9 (primary diagnosis) - suspect strep - Rapid Strep negative in the office today and Throat culture pending - Amoxicillin for 10 days. - Discussed supportive care treatment with fluids, rest and analgesia. - The patient may also use warm salt water gargles, throat lozenges and/or OTC throat spray as needed. - Contagious dz precautions discussed- including considered contagious until on antibiotics for 24 hours - Call back if drooling, increased temperature, symptoms of dehydration and/or still sick in one week - RAPID STREP TEST B/O - GROUP A STREPTOCOCCUS BY PCR 2. Tonsillitis - ICD9: 463, ICD10: J03.90 - will treat based on symptoms and exam findings consistent for strep. - Follow-up with your PCP in 3-5 days if symptoms have not improved or sooner if symptoms worsen - Discussed red flags and need for immediate medical evaluation if any occur. - Discussed supportive care treatment with fluids, rest and analgesia. - Discussed expected course of illness YA Johnston CNP 05/26/2017 3:10 PM Signed SORE THROAT INSTRUCTIONS SORE THROAT OVERVIEW - Sore throat is a common problem during childhood, and is usually the result of a bacterial or viral infection. Although sore throat usually resolves without complications, it sometimes requires treatment with an antibiotic. There are some less common causes of sore throat that are serious or even life-threatening. This topic will discuss the most common causes and treatments of sore throat in children, as well as the warning signs of more serious conditions. SORE THROAT CAUSES - The most likely cause of a child's sore throat depends upon the child's age, the season, and the geographic area. While viruses are the most common cause of sore throat, bacteria are another common cause. Bacteria and viruses are spread from one person to another through hand contact. Hands get contaminated when the sick individual touches their nose or mouth and then touches another person directly (brfx-zk-remd contact) or indirectly (jvif-mt-kamyfi, such as doorknob, telephone, toys). It is difficult to determine the cause of sore throat based upon symptoms alone; an examination and laboratory test are recommended in most cases Viruses - There are many viruses that can cause pain and swelling of the throat. The most common include viruses that cause sore throat as part of an upper respiratory infection, such as the common cold. Other viruses that cause sore throat include influenza, adenovirus, and Abelardo-Mcfadden virus (the cause of mononucleosis). Symptoms - Symptoms that may occur with a viral infection can include a runny nose and congestion, irritation or redness of the eyes, cough, hoarseness, soreness in the roof of the mouth, a skin rash, or diarrhea. In addition, children with viral infections may have a fever and may feel miserable. A high fever does not necessarily mean that the child has a bacterial infection. Group A streptococcus - Group A streptococcus (GAS) is the name of the bacterium that causes strep throat. Although other bacteria can cause a sore throat, GAS is the most common bacterial cause; up to 30 percent of children with a sore throat will have GAS. Strep throat usually occurs during the winter and early spring, and is most common in school-age children and their younger siblings. Symptoms - Symptoms of strep throat in children older than 3 years often develop suddenly and include fever (temperature ?100.4?F or 38?C), headache, abdominal pain, nausea, and vomiting. Other symptoms can include swollen glands in the neck, white patches of pus in the back or sides of the throat, small red spots on the roof of the mouth, and swelling of the uvula. A cough and cold are not commonly seen in children with strep throat. Strep throat is uncommon in children younger than age 2 to 3 years. However, GAS infection can occur in younger children, and may cause a runny nose and congestion that is prolonged, low-grade fever (?101?F or 38.3?C), and tender glands in the neck. Infants younger than 1 year may be fussy and have a decreased appetite and low-grade fever. SORE THROAT TREATMENT - The treatment of sore throat depends upon the cause; strep throat is treated with an antibiotic while viral pharyngitis is treated with rest, pain relievers, and other measures to reduce symptoms. Strep throat - Strep throat is usually treated with an antibiotic, such as penicillin, or an antibiotic similar to penicillin (eg, amoxicillin). Children who are allergic to penicillin will be given an alternate antibiotic. The antibiotic is usually given in pill or liquid form two or three times per day. A one-time injection is also available, and may be recommended if a child is unwilling to take an oral medication. After completing 24 hours of antibiotics, the child is no longer contagious and may return to school. Symptoms usually improve within 1 to 2 days. However, it is important for the child to finish the entire course of treatment (usually 10 days). If a child does not begin to improve or worsens within 3 days, the child should be reevaluated. Throat pain can be treated with a non-prescription pain medication, if needed. (See 'Pain medications' below.) In addition, parents should monitor their child for dehydration, which can develop if the child is not willing to drink or eat due to a sore throat. (See 'Monitor for dehydration' below.) Viral throat pain - Sore throat caused by viral infections usually last 4 to 5 days. During this time, treatments to reduce pain may be helpful but will not help to eliminate the virus. Antibiotics do not improve throat pain caused by a virus and are not recommended. A child with a viral infection is usually allowed to return to school when there has been no fever for 24 hours and the child feels well enough to pay attention. Pain medications - Throat pain can be treated with a mild pain reliever such as acetaminophen (Tylenol?) or a non-steroidal anti-inflammatory agent such as ibuprofen (Motrin?). These medications should be dosed according to weight, not age. Aspirin is not recommended for children ANDlt;18 years due to the risk of a potentially serious condition known as Lew syndrome. Monitor for dehydration - Some children with a sore throat are reluctant to drink or eat due to pain. Drinking less fluid can lead to dehydration. To reduce the risk of dehydration, parents can offer warm or cold liquids. (See 'Other interventions' below.) Signs and symptoms of mild dehydration include a slightly dry mouth, increased thirst, and decreased urine output (one wet diaper or void in six hours). Signs of moderate or severe dehydration include decreased urine output (less than one wet diaper or void in six hours), lack of tears when crying, dry mouth, and sunken eyes. A child who is moderately or severely dehydrated should be evaluated by a healthcare provider as soon as possible to determine if treatment is needed. Oral rinses- Salt-water gargles are an old stand-by for relief of throat pain. It is not clear if this treatment is effective, but it is unlikely to be harmful. Most recipes suggest 1/4 to 1/2 teaspoon of salt per cup (8 ounces) of warm water. The water should be gargled and then spit out (not swallowed). Children younger than six to eight years are not able to gargle properly. An oral rinse composed of equal parts of diphenhydramine (Benadryl? liquid) and Maalox? (magnesium hydroxide, aluminum hydroxide, and simethicone) may be helpful for pain caused by a sore mouth or ulcers in the mouth. Children older than six to eight years may swish and spit (not swallow) the mixture. Sprays - Sprays containing topical anesthetics are available to treat sore throat. However, such sprays are no more effective than sucking on hard candy. In addition, a common anesthetic ingredient, benzocaine, can cause allergic reactions. We do not recommend throat sprays for children. Lozenges - A variety of medicated throat lozenges are available to relieve dryness or pain. However, it is not clear that lozenges work any better than hard candy. We do not recommend throat lozenges for children, especially children younger than 3 to 4 years, who can choke. Sucking on hard candy may provide some relief for children older than 3 to 4 years, who are not at risk for choking. Other interventions - Other interventions include sipping warm beverages (eg, honey or lemon tea, chicken soup), cold beverages, or eating cold or frozen desserts (eg, ice cream, popsicles). These treatments are safe for children. Honey should not be given to children younger than 12 months due to the potential risk of botulism poisoning. Alternative therapies - Health food stores, vitamin outlets, and Internet Web sites offer alternative treatments for relief of sore throat pain. We do not recommend these treatments due to the risks of contamination with pesticides/herbicides, inaccurate labeling and dosing information, and a lack of studies showing that these treatments are safe and effective. SORE THROAT PREVENTION - Hand washing is an essential and highly effective way to prevent the spread of infection. Hands should be wet with water and plain soap, and rubbed together for 15 to 30 seconds. Special attention should be paid to the fingernails, between the fingers, and the wrists. Hands should be rinsed thoroughly, and dried with a single use towel. Alcohol-based hand rubs are a good alternative for disinfecting hands if a sink is not available. Hand rubs should be spread over the entire surface of hands, fingers, and wrists until dry, and may be used several times. These rubs can be used repeatedly without skin irritation or loss of effectiveness. Hand rubs are available as a liquid or wipe in small, portable sizes that are easy to carry in a pocket or handbag. When a sink is available, visibly soiled hands should be washed with soap and water. Hands should be washed after coughing, blowing the nose or sneezing. While it is not always possible to limit contact with a person who is sick, avoiding touching the eyes, nose, or mouth after direct contact can help to prevent the spread of infection. In addition, tissues should be used to cover the mouth when sneezing or coughing. These used tissues should be disposed of promptly. Sneezing/coughing into the sleeve of one's clothing (at the inner elbow) is another means of containing sprays of saliva and secretions and has the advantage of not contaminating the hands. WHEN TO SEEK HELP - Parents of a child with throat pain and one or more of the following should contact their healthcare provider immediately: Difficulty swallowing or breathing Excessive drooling in an infant or young child Temperature ?101?F or 38.3?C Swelling of the neck Child is unable or unwilling to drink or eat Voice sounds muffled Child has a stiff neck or difficulty opening the mouth WHERE TO GET MORE INFORMATION - Your child's healthcare provider is the best source of information for questions and concerns related to your child's medical problem. This article will be updated as needed every four months on our web site ([email or web address]). Information below was obtained from ANDquot;Up to dateANDquot; Last literature review version 19.2: August 2010 This topic last updated: December 17, 2009 Referring Provider: SELF [200] Allergies As of Date: 05/26/2017 (No Known Allergies) Date Reviewed: 05/26/2017 Reviewed by: Randi ([facility]) Frida - Fully Assessed Reason for Visit: Sore Throat [200] Cmt: x 1 day Fever [47] Cmt: x today Headache [52] Cmt: x today Primary Visit Diagnosis:Sore throat [J02.9] Other Visit Diagnosis:Tonsillitis [J03.90] Order(s):RAPID STREP TEST B/O [8372955] Order #: [id number] GROUP A STREPTOCOCCUS BY PCR [SQGASPCR] Order #: [id number] amoxicillin (AMOXIL) 875 mg tabletTake 1 tablet by mouth twice daily for 10 days.Disp: 20 tabletRfl: 0 Prescriptions as of 05/26/2017 Sig: RIZATRIPTAN 10 MG TABLET Take 1 tablet by mouth as nee* ONDANSETRON 8 MG DISINTEGRATI* Take 1 tablet by mouth every * DROSPIRENONE-ETHINYL ESTRADIO* Take 1 tablet by mouth once d* FLUOXETINE 40 MG CAPSULE 1 tablet by mouth at bedtime AMOXICILLIN 875 MG TABLET Take 1 tablet by mouth twice * Problem List As Of Date 05/26/2017 Noted Resolved Depression with anxiety [F41.8] INVALID FOR* Other instructions from your clinician: SORE THROAT INSTRUCTIONS SORE THROAT OVERVIEW - Sore throat is a common problem during childhood, and is usually the result of a bacterial or viral infection. Although sore throat usually resolves without complications, it sometimes requires treatment with an antibiotic. There are some less common causes of sore throat that are serious or even life-threatening. This topic will discuss the most common causes and treatments of sore throat in children, as well as the warning signs of more serious conditions. SORE THROAT CAUSES - The most likely cause of a child's sore throat depends upon the child's age, the season, and the geographic area. While viruses are the most common cause of sore throat, bacteria are another common cause. Bacteria and viruses are spread from one person to another through hand contact. Hands get contaminated when the sick individual touches their nose or mouth and then touches another person directly (ummr-ge-agyp contact) or indirectly (mpfu-ep-tnwqxv, such as doorknob, telephone, toys). It is difficult to determine the cause of sore throat based upon symptoms alone; an examination and laboratory test are recommended in most cases Viruses - There are many viruses that can cause pain and swelling of the throat. The most common include viruses that cause sore throat as part of an upper respiratory infection, such as the common cold. Other viruses that cause sore throat include influenza, adenovirus, and Abelardo-Mcfadden virus (the cause of mononucleosis). Symptoms - Symptoms that may occur with a viral infection can include a runny nose and congestion, irritation or redness of the eyes, cough, hoarseness, soreness in the roof of the mouth, a skin rash, or diarrhea. In addition, children with viral infections may have a fever and may feel miserable. A high fever does not necessarily mean that the child has a bacterial infection. Group A streptococcus - Group A streptococcus (GAS) is the name of the bacterium that causes strep throat. Although other bacteria can cause a sore throat, GAS is the most common bacterial cause; up to 30 percent of children with a sore throat will have GAS. Strep throat usually occurs during the winter and early spring, and is most common in school-age children and their younger siblings. Symptoms - Symptoms of strep throat in children older than 3 years often develop suddenly and include fever (temperature ?100.4?F or 38?C), headache, abdominal pain, nausea, and vomiting. Other symptoms can include swollen glands in the neck, white patches of pus in the back or sides of the throat, small red spots on the roof of the mouth, and swelling of the uvula. A cough and cold are not commonly seen in children with strep throat. Strep throat is uncommon in children younger than age 2 to 3 years. However, GAS infection can occur in younger children, and may cause a runny nose and congestion that is prolonged, low-grade fever (?101?F or 38.3?C), and tender glands in the neck. Infants younger than 1 year may be fussy and have a decreased appetite and low-grade fever. SORE THROAT TREATMENT - The treatment of sore throat depends upon the cause; strep throat is treated with an antibiotic while viral pharyngitis is treated with rest, pain relievers, and other measures to reduce symptoms. Strep throat - Strep throat is usually treated with an antibiotic, such as penicillin, or an antibiotic similar to penicillin (eg, amoxicillin). Children who are allergic to penicillin will be given an alternate antibiotic. The antibiotic is usually given in pill or liquid form two or three times per day. A one-time injection is also available, and may be recommended if a child is unwilling to take an oral medication. After completing 24 hours of antibiotics, the child is no longer contagious and may return to school. Symptoms usually improve within 1 to 2 days. However, it is important for the child to finish the entire course of treatment (usually 10 days). If a child does not begin to improve or worsens within 3 days, the child should be reevaluated. Throat pain can be treated with a non-prescription pain medication, if needed. (See 'Pain medications' below.) In addition, parents should monitor their child for dehydration, which can develop if the child is not willing to drink or eat due to a sore throat. (See 'Monitor for dehydration' below.) Viral throat pain - Sore throat caused by viral infections usually last 4 to 5 days. During this time, treatments to reduce pain may be helpful but will not help to eliminate the virus. Antibiotics do not improve throat pain caused by a virus and are not recommended. A child with a viral infection is usually allowed to return to school when there has been no fever for 24 hours and the child feels well enough to pay attention. Pain medications - Throat pain can be treated with a mild pain reliever such as acetaminophen (Tylenol?) or a non-steroidal anti-inflammatory agent such as ibuprofen (Motrin?). These medications should be dosed according to weight, not age. Aspirin is not recommended for children <18 years due to the risk of a potentially serious condition known as Lew syndrome. Monitor for dehydration - Some children with a sore throat are reluctant to drink or eat due to pain. Drinking less fluid can lead to dehydration. To reduce the risk of dehydration, parents can offer warm or cold liquids. (See 'Other interventions' below.) Signs and symptoms of mild dehydration include a slightly dry mouth, increased thirst, and decreased urine output (one wet diaper or void in six hours). Signs of moderate or severe dehydration include decreased urine output (less than one wet diaper or void in six hours), lack of tears when crying, dry mouth, and sunken eyes. A child who is moderately or severely dehydrated should be evaluated by a healthcare provider as soon as possible to determine if treatment is needed. Oral rinses- Salt-water gargles are an old stand-by for relief of throat pain. It is not clear if this treatment is effective, but it is unlikely to be harmful. Most recipes suggest 1/4 to 1/2 teaspoon of salt per cup (8 ounces) of warm water. The water should be gargled and then spit out (not swallowed). Children younger than six to eight years are not able to gargle properly. An oral rinse composed of equal parts of diphenhydramine (Benadryl? liquid) and Maalox? (magnesium hydroxide, aluminum hydroxide, and simethicone) may be helpful for pain caused by a sore mouth or ulcers in the mouth. Children older than six to eight years may swish and spit (not swallow) the mixture. Sprays - Sprays containing topical anesthetics are available to treat sore throat. However, such sprays are no more effective than sucking on hard candy. In addition, a common anesthetic ingredient, benzocaine, can cause allergic reactions. We do not recommend throat sprays for children. Lozenges - A variety of medicated throat lozenges are available to relieve dryness or pain. However, it is not clear that lozenges work any better than hard candy. We do not recommend throat lozenges for children, especially children younger than 3 to 4 years, who can choke. Sucking on hard candy may provide some relief for children older than 3 to 4 years, who are not at risk for choking. Other interventions - Other interventions include sipping warm beverages (eg, honey or lemon tea, chicken soup), cold beverages, or eating cold or frozen desserts (eg, ice cream, popsicles). These treatments are safe for children. Honey should not be given to children younger than 12 months due to the potential risk of botulism poisoning. Alternative therapies - Health food stores, vitamin outlets, and Internet Web sites offer alternative treatments for relief of sore throat pain. We do not recommend these treatments due to the risks of contamination with pesticides/herbicides, inaccurate labeling and dosing information, and a lack of studies showing that these treatments are safe and effective. SORE THROAT PREVENTION - Hand washing is an essential and highly effective way to prevent the spread of infection. Hands should be wet with water and plain soap, and rubbed together for 15 to 30 seconds. Special attention should be paid to the fingernails, between the fingers, and the wrists. Hands should be rinsed thoroughly, and dried with a single use towel. Alcohol-based hand rubs are a good alternative for disinfecting hands if a sink is not available. Hand rubs should be spread over the entire surface of hands, fingers, and wrists until dry, and may be used several times. These rubs can be used repeatedly without skin irritation or loss of effectiveness. Hand rubs are available as a liquid or wipe in small, portable sizes that are easy to carry in a pocket or handbag. When a sink is available, visibly soiled hands should be washed with soap and water. Hands should be washed after coughing, blowing the nose or sneezing. While it is not always possible to limit contact with a person who is sick, avoiding touching the eyes, nose, or mouth after direct contact can help to prevent the spread of infection. In addition, tissues should be used to cover the mouth when sneezing or coughing. These used tissues should be disposed of promptly. Sneezing/coughing into the sleeve of one's clothing (at the inner elbow) is another means of containing sprays of saliva and secretions and has the advantage of not contaminating the hands. WHEN TO SEEK HELP - Parents of a child with throat pain and one or more of the following should contact their healthcare provider immediately: Difficulty swallowing or breathing Excessive drooling in an or young child Temperature ?101?F or 38.3?C Swelling of the neck Child is unable or unwilling to drink or eat Voice sounds muffled Child has a stiff neck or difficulty opening the mouth WHERE TO GET MORE INFORMATION - Your child's healthcare provider is the best source of information for questions and concerns related to your child's medical problem. This article will be updated as needed every four months on our web site ([email or web address]). Information below was obtained from Up to date Last literature review version 19.2: August 2010 This topic last updated: December 17, 2009 Prescriptions ordered this encounter Disp Refills Start End AMOXICILLIN 875 MG TABLET 20 t* 0 05/26/2017 06/05/2017 Route: ORAL Sig: Take 1 tablet by mouth twice daily for 10 days. Medications Discontinued During This Encounter Drospirenone-Ethinyl Estradiol (TITI * 05/26/2017 Class: Historical Med Route: ORAL Sig: Take 1 tablet by mouth once daily. Disc: Reason for discontinue is not on file. Letter Text Randi Galicia CNP Urgent Care [address] [facility] [place] [address] Dept: [phone] 05/26/2017 Quyen Howell [address] [facility] [address] To Whom it May Concern: This is to certify that Quyen Howell was seen at our office for medical care. Quyen may return to work on 05/28/2017. If you have any questions please feel free to call. Sincerely: Randi Galicia CNP Encounter Status:Closed by RANDI GALICIA on 05/26/17 ALLERGIES ALLERGIES DATE TYPE / CODE NAME / CODE REACTION SEVERITY SOURCE 04/13/2018 Drug No Known Unknown [facility] Allergy/416 Allergies/[id number] Hospital [id number](SNOM 0388(RXNORM) Repository ED CT) Drug NO KNOWN [facility] Class/84565 ALLERGIES [facility] 1003(SNOMED Repository CT) ENCOUNTERS ENCOUNTERS ADMIT/DISCHARGE ACCOUNT ADMITTING ENCOUNTER LOCATION SOURCE NUMBER CLASS 04/13/2018/04/13/20 [id number] Emergency [address] ing:ED Repository 04/13/2018/04/14/20 [id number] Ambulatory [address] Repository 04/07/2018/04/10/20 [id number] Ambulatory [address] Repository 02/17/2018/02/18/20 [id number] Ambulatory [address] Repository 02/14/2018/02/16/20 [id number] Ambulatory [address] Repository 01/30/2018/02/14/20 [id number] Ambulatory [address] Repository 01/28/2018/02/01/20 [id number] Ambulatory [address] Repository 01/25/2018/01/27/20 [id number] Ambulatory [address] Repository 05/26/2017/05/26/19 [id number] Ambulatory [address] Repository PAYERS PAYERS ENCOUNTER GUARANTOR PAYER SUBSCRIBER SOURCE 04/13/2018 QUYEN HOWELL251 Primary IRMA WEBB, Insurance:ANTHEMPolic WHYELDOB: [facility] [address]Eug: y Number: [id number] Hospital [id number] Repository (HP) Date:[id number] [facility] [id number] [place] [address] [id number]: 04/13/2018 Secondary SUHA Flynn Insurance:SELF PAY [facility] Number: Effective Repository Date:2018-04-13
== END 2018-04-13 13:48 | disposition home or self-care (01) ==
PROVIDERS: Emergency Provider Emergency Medicine; Family Provider Pediatrics; PCP Pediatrics
DX: R10.30 Lower abdominal pain, unspecified (principal); R68.83 Chills (without fever); J34.89 Other specified disorders of nose and nasal sinuses; R11.2 Nausea with vomiting, unspecified; R19.7 Diarrhea, unspecified; R35.0 Frequency of micturition; R30.0 Dysuria; F17.200 Nicotine dependence, unspecified, uncomplicated
CPT/HCPCS: 74022; 80053; 81001; 81025; 83690; 85025; 99283; A4216

== ENCOUNTER 2022-01-16 01:45 | Outpatient (CLI) | payer OTHER, SELFPAY ==
[2022-01-16 02:03] VITALS: BMI 32.0
[2022-01-16 02:05] VITALS: BP 113/68; PULSE 91; TEMP 36.4
[2022-01-16 02:06] VITALS: PULSE 95; O2SAT 98
[2022-01-16 02:53] VITALS: PULSE 87; O2SAT 98
[2022-01-16 02:58] VITALS: PULSE 92; O2SAT 98
--- NOTE | 2022-01-16 07:42 | OB.TRI.HP_ITS ---
HPI - General General Date of Service: 01/16/22 Chief Complaint: vaginal bleeding after intercourse, 34 weeks gestation HPI Narrative QUYEN TOPETE, is a 21 F @ 34.5 weeks who reports vaginal bleeding after intercourse. Pt recieves PNC at [facility]. Has some ctx. PFSH PFSH Home Medications 1 tab PO/SL DAILY 01/16/22 [History Last Taken Unknown] Allergy/AdvReac Type Severity Reaction Status Date / Time No Known Allergies Allergy Verified 01/16/22 02:07 Social History Smoking Status: Current every day smoker Physical Exam Narrative VE: 1cm per RN NST FHR Rate Baby A Baseline: 140 Variability:: Moderate Accelerations:: 15 x 15 Decelerations:: None NST Reactive:: Yes FHR Category:: Category I Uterine Activity:: irregular Assessment & Plan (1) 34 weeks gestation of : (2) Vaginal bleeding during , antepartum: (3) contractions: PLAN: Plan @ 34.5 weeks, bleeding after intercourse with contractions 1) cervical exam- not laboring cervix 1cm- scant blood on pad per RN 2) plan to dc home- if worsening pain bleeding return - follow up with primary OB 3) PUSH PO FLUIDS
== END 2022-01-16 03:15 | disposition home or self-care (01) ==
LOC: WPOUT 01:57 → WP 01:58
PROVIDERS: Visit Provider Obstetrics & Gynecology
DX: O46.93 Antepartum hemorrhage, unspecified, third trimester (principal); Z3A.34 34 weeks gestation of pregnancy; O99.333 Smoking (tobacco) complicating pregnancy, third trimester; F17.200 Nicotine dependence, unspecified, uncomplicated
CPT/HCPCS: 59025; 59050; 99218; G0378

== ENCOUNTER 2022-02-04 18:12 | Inpatient (IN) | payer OTHER, SELFPAY ==
[2022-02-04] VITALS (29 sets, daily range): BP systolic 98–135; BP diastolic 55–88; PULSE 80–102; TEMP 36.7–37; O2SAT 98–100; BMI 32.2
[2022-02-04] MEDS: LACTATED RINGERS 500 ML 999 ML IV (18:40)
[2022-02-04 18:58] LABS: Absolute Lymphocyte Count 2.04 X10^3/uL (0.83-4.51); Absolute Neutrophil Count 14.2 X10^3/uL (2.0-7.7); Basophil# 0.06 X10^3/uL; Basophil% 0.3 % (0-1); Eosinophil# 0.09 X10^3/uL; Eosinophils% 0.5 % (0-5); Hematocrit 31.9 % (37-47); Hemoglobin 10.8 g/dL (12.0-15.0); Lymphocyte # 2.04 X10^3/ul (0.83-4.51); Lymphocyte % 11.6 % (19-41); Mean Corp Hgb Conc 33.9 g/dL (32-36); Mean Corpuscular Hgb 30.7 pg (27.0-32.0); Mean Corpuscular Volume 90.6 fL (81-99); Mean Platelet Vol. 10.7 fl (6.2-12.0); Monocyte# 1.04 X10^3/uL; Monocyte% 5.9 % (0-10); NRBC Flagged by Analyzer 0 % (0-5); Neutrophil % 80.8 % (47-70); Platelet Count 257 K/mm3 (150-450); RBC Distribution Width CV 13.4 % (11.6-14.6); RBC Distribution Width SD 43.8 fl (35.1-43.9); Red Blood Count 3.52 M/mm3 (4.2-5.4); White Blood Count 17.6 K/mm3 (4.4-11.0)
--- NOTE | 2022-02-04 19:00 | HP.PCM.OB_ITS ---
History and Physical Date of Admission: 02/04/22 Chief complaint: Contractions History present illness: 21-year-old at 37 weeks and 3 days with WYATT 02/22/2022 arrives with care by Dr. Mcnulty with contractions. Denies headache, visual changes, chest pain, shortness of breath, nausea vomit, right upper quadrant pain. Patie nt states good movement. Obstetric history: G1: Current Past medical history: None Medications: vitamin Past surgical history: [place] teeth extraction Allergies: No known drug allergies Social history: Denies smoking, alcohol use, drug use Family history: Denies history DVT or PE Review of systems: Besides above pertinent positives a full review of systems was performed and found to be negative Physical exam: Vitals: Blood pressure 122/76 pulse 101 General: Normal-appearing no acute distress HEENT: Normocephalic/atraumatic no cervical of adenopathy Cardiac/respiratory: No use of accessory muscles nonlabored breathing Abdomen: Soft, nontender, gravid Extremities: No peripheral edema normal peripheral pulses Psych: Normal affect normal demeanor nonpressured speech Labs: White blood cell count 17.6 hemoglobin 10.8 hematocrit 31.9% platelets 257. Bedside ultrasound: Cephalic Assessment and plan: 21-year-old G1, P0 at 37 weeks and 3 days in labor[address] Dr[address] Mcnulty for care. For panel. GBS positive to start penicillin. Will augment with Pitocin if needed. Anesthesia to see. Routine orders.
[2022-02-04] MEDS: Lactated Ringers 1,000 ML 200 ML IV (19:11)
[2022-02-04] MEDS: fentaNYL-bupivacaine (epidural) 100 ML BAG EPIDURAL (19:53)
[2022-02-04 21:05] LABS: Amphetamine Urine VISTA NEGATIVE (<1000 ng/mL); Barbiturate Urine VISTA NEGATIVE (< 200 ng/mL); Benzodiazepine Urine VISTA NEGATIVE (< 200 ng/mL); Cocaine Urine VISTA NEGATIVE (< 300 ng/mL); Ecstacy Urine VISTA NEGATIVE (< 500 ng/mL); Methadone Urine VISTA NEGATIVE (< 300 ng/mL); PCP Urine VISTA NEGATIVE (< 25 ng/mL); THC Urine VISTA NEGATIVE (< 50 ng/mL); Vista UDS pH Range 6
[2022-02-04] MEDS: Ondansetron 4 MG/2 ML Vial IV (22:00)
[2022-02-04] MEDS: Penicillin G 3,000,000 Units 50 ML 100 UNITS IV (23:26)
[2022-02-05] VITALS (31 sets, daily range): BP systolic 96–128; BP diastolic 52–86; PULSE 81–116; RESP 15–16; TEMP 36.7–38.2; O2SAT 97–100
[2022-02-05] MEDS: Lactated Ringers 1,000 ML 200 ML IV (00:02)
[2022-02-05] MEDS: fentaNYL-bupivacaine (epidural) 100 ML BAG EPIDURAL (00:53)
[2022-02-05] MEDS: Oxytocin 30 units/NS 500 ml 30 UNITS/500 ML IV.SOLN 334 UNITS IV (04:14)
--- NOTE | 2022-02-05 05:36 | EX.PCM.OBRPT ---
Vaginal Delivery Findings Description of Procedure: Normal spontaneous vaginal delivery of a viable male , vertex MEDHAT. Head and shoulders delivered with ease. Cord cut and clamped. Baby handed off to patient. Placenta delivered via cord traction and fundal massage. First-degree midline perineal laceration noted and repaired in typical fashion. EBL 300 cc Apgars 8/9
[2022-02-05] MEDS: Ibuprofen 600 MG Tablet PO ×2 (05:59→22:46)
[2022-02-05 09:22] LABS: HIV - WCH Non-Reactive (Nonreactive)
--- NOTE | 2022-02-05 16:57 | CASEMGMT ---
Social Work Labor and Delivery Unit Social work consult received via preschool assistant teacher for maternal history of anxiety and depression. Social work assessment completed this date and full assessment to follow. Patient is cleared for discharge from social work standpoint. Resources have been provided for home-going. -JOE Kumar, BOOK SEWING MACHINE OPERATOR
[2022-02-06] VITALS (8 sets, daily range): BP systolic 104–121; BP diastolic 66–74; PULSE 70–85; RESP 15–18; TEMP 36.3–36.6; O2SAT 98–99
--- NOTE | 2022-02-06 09:41 | PCM.PN.OB ---
Subjective Subjective day 1. Lochia minimal. Baby currently formula feeding, has planned for trying to pump some colostrum. Objective Data Objective Data Vital Signs: Vital Signs Temp Pulse Resp BP Pulse Ox O2 Del Method 97.5 F L 85 16 104/66 99 Room Air 02/06/22 08:40 02/06/22 08:41 02/06/22 08:30 02/06/22 08:41 02/06/22 08:30 02/06/22 08:30 Oxygen Delivery Method Room Air Weight: 85.1 kg Body Mass Index (BMI) 32.2 Intake & Output: Intake and Output for Last 24 Hours 02/04/22 02/05/22 02/06/22 23:59 23:59 23:59 Intake Total 605 / 655 2360.00 / 2360.00 Output Total 1000 / 1000 Balance 605 / 655 1360.00 / 1360.00 Lab / Micro Data Result Diagrams: 02/04/22 18:40 Micro: Microbiology 02/04/22 18:30 Nasal Secretion SARS-CoV-2 Antigen (Rapid) - Final Physical Exam Const alert, oriented x3 and no apparent distress HEENT normocephalic Head and Scalp: atraumatic Neck full ROM Resp normal respiratory effort Cardio regular rate GI normal to inspection, nondistended, normoactive bowel sounds GI Narrative: Uterus 2 cm below umbilicus Back/Spine normal ROM Extremity normal to inspection Extremity Narrative: Minimal pedal edema Neuro no focal motor deficits and no sensory deficits noted Psych mental status grossly normal and affect normal Assessment & Plan (1) Vaginal delivery: PLAN: day 1 . Patient sees physician at [facility]. Discussed that she can follow-up with that Dr. Garcia with [place] [facility]. Baby is currently formula feeding. Patient has plans to pump colostrum. Discussed hand expression as well. Discharge home today with follow-up in 4 to 6 weeks.
--- NOTE | 2022-02-06 09:43 | DCINST_ITS ---
Discharge Instructions Diet Discharge Diet: No restrictions Activity Discharge Activity: Return to Normal Activity and May Shower May resume sexual activity in: 4-6 weeks Weight Bearing Status: Weight bearing as tolerated Lifting Restrictions: No greater than 25 pounds Dressing / Incision Call your doctor if you observe: Fever of 101 or Higher, Change in Color, Inability to urinate, Using more than 1 pad per hour, Shortness of breath, Dizziness, Swelling in the ankles, Chest pain and Calf discomfort Follow Up Care Please Follow Up With: Kingsley Locke MD When: 4-6 week visit Test Results: Test results from this visit will be discussed in further detail at your follow- up appointment, if applicable. Discharge Plan Admission Admit Date/Time: 02/04/22 18:12 Primary Reason for Your Visit: Vaginal delivery Attending Provider: Kingsley Locke Primary Care Provider: Elinor PhysicianZeinab Primary Discharge Orders/Prescriptions Prescriptions: No Action 1 tab PO/SL DAILY Referrals / Follow Up: Care Physician,No Primary [Primary Care Provider] - Disposition Disposition (needs filled in before D/C Order can be placed): Home, Self Care
[2022-02-06] MEDS: FLU VACC QS2022-23(6MOS UP)/PF 60 MCG/0.5 ML SYRINGE IM (12:20)
--- NOTE | 2022-02-08 15:27 | CASEMGMT ---
Social Work Assessment Labor and Delivery Unit - late entry Date of Referral: 02.05.2022 Time of Referral: 1053 Referred By: Dr. Julieta Lentz Date of Intervention: 02.05.2022 Time of Intervention: 165 Reason for Referral: Maternal history of anxiety and depression History obtained from: medical records and mother of baby (MOB) Lacey Luciano; father of baby (FOB) Joao Connelly and Joao?s father/?s grandfather present for part of conversation. Household composition: MOB and FOB. Home is reported as safe and adequate. Patient's parent/guardian status: MOB is a 21-year-old single female, involved with the FOB for 1 year. During private conversation, MOB denies any from of abuse, control, or intimidation. baby boy, Aylin Connelly (02.05.2024) is the first child for both. Medical History: MOB is G1, P0 to 1 after delivery Aylin. care reportedly completed in [place] through Dr. Mcnulty at [facility] at around 6 weeks gestation. MOB reports chose to deliver at [facility] due to liking this hospital, and also not liking an experience that had at [facility] during the . MOB reports financially it made sense to complete the PNC through [facility] (due to insurance) but wanted delivery despite finances at [facility]. Educational Status: College. Degree in Practical Nursing. No issues with reading writing or learning comprehension. 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 FOB works at a factory on first shift. Supplies: MOB and FOB both reports to have necessary supplies. Childcare/Caregiver(s): MOB and FOB, and then help from family. Transportation: No concerns reported. Both MOB and FOB drive. Programs/Agencies Involved: Report to have WIC. NO other agency involvement. Declines referral to [facility]. Children Services/Legal Issues: None reported. Behavioral Health Issues: Mental Health History: MOB reports history of depression and anxiety, with depression being more prominent for the MOB. MOB reports PMDD diagnosis in the past, experience strong feelings of anger. Reports has tried medications and Wellbutrin has worked well for MOB in the past. MOB reports went off of the medication due to but reports intent to restart after talking to physician. Regarding suicide, MOB denies any past attempts or planning but has had thoughts in the past. MOB reports thoughts have been years ago when MOB was a teenager. 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 Ingestion by snorting. 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 Denies other illicit drug use history, nor any use during . MOB denies any history of alcohol use issues. Family History: MOB?s mother, maternal grandmother, and maternal great grandfather with history of Bipolar Disorder. Drug Screens: Negative maternal drugs screen on 02.04.2022. Family/Social Stressors: Financial has been a concern relating where to deliver, but MOB reports the FOB encouraged MOB to deliver at [facility] if wanted to, despite cost as felt MOB?s delivery experience was most important. Support Systems: MOB reports FOB, MOB?s [id number], FOB?s other family and the MOB?s parents are good supports. Depression/Shaken Baby/Safe Sleeping: Information reviewed. ASSESSMENT: Met with MOB, FOB, and FOB?s father in room. Introduced to self and role. Talked about general information with visitors present, and then personal mental health, substance use, DV topics alone. MOB shared with visitors present a history of depression and anxiety. Educated to mood and anxiety disorders, risk for this and that fathers can also be at risk. MOB and FOB reports to have necessary supplies to care for infant and to have adequate support from family if needed. During private conversation did educate MOB to risk of psychosis in light of family history of bipolar disorder. MOB able to discuss healthy coping skills, intent to talk to provider about restarting antidepressant, and would go to counseling if feeling distress in the future. Note, observed the FOB?s father to hold the baby, talk to baby, smiled and laugh with excitement over baby. At times the FOB?s father was disruptive in his verbosity, though MOB continued to talk to this filing writer without issue. Observed all three adults to hold the baby and all were gentle and appropriate. No voiced concerns by nursing staff regarding parents or child interactions or bonding. Safe Plan of Care for infant related to substance use: Reports has been sober for 4-5 years now. No reported intention to pick use back up. PLAN: MOB and to home. Provided home going resources for mood and anxiety disorders. Declined need for any additional referrals. No other services requested or indicated. -TOM Kumar, LUCIO
== END 2022-02-06 14:15 | disposition home or self-care (01) | DRG 807 ==
LOC: WPOUT 18:16 → WP 18:16
PROVIDERS: Admitting Provider Obstetrics & Gynecology; Referring Provider Obstetrics & Gynecology; Visit Provider Obstetrics & Gynecology
DX: O99.824 Streptococcus B carrier state complicating childbirth (principal); Z37.0 Single live birth; Z23 Encounter for immunization; Z3A.37 37 weeks gestation of pregnancy; O70.0 First degree perineal laceration during delivery
CPT/HCPCS: 59025; 59050; 76815; 80307; 85025; 86703; 86850; 86900; 86901; 87811; 99218; 99406; J7120; 90686; G0378; J2405

== ENCOUNTER → 2023-03-07 | Outpatient (CLI) | payer BC, SELFPAY ==
[2023-03-07 18:03] LABS: hCG Titer Quant., Serum < 1 mIU/mL (1-3)
== END | disposition home or self-care (01) ==
LOC: BFHLAB 16:13
PROVIDERS: PCP Nurse Practitioner Family; Referring Provider Nurse Practitioner Family; Visit Provider Nurse Practitioner Family
DX: N92.6 Irregular menstruation, unspecified (principal)
CPT/HCPCS: 36415; 84702

== ENCOUNTER → 2023-04-05 | Outpatient (CLI) | payer BC, SELFPAY ==
[2023-04-05 12:23] LABS: Absolute Neutrophil Count 7.5 X10^3/uL (2.0-7.7); Basophil# 0.04 X10^3/uL; Basophil% 0.4 % (0-1); Eosinophil# 0.05 X10^3/uL; Eosinophils% 0.5 % (0-5); Hematocrit 42.6 % (37-47); Hemoglobin 13.7 g/dL (12.0-15.0); Lymphocyte % 14.7 % (19-41); Mean Corp Hgb Conc 32.2 g/dL (32-36); Mean Corpuscular Hgb 29.4 pg (27.0-32.0); Mean Corpuscular Volume 91.4 fL (81-99); Mean Platelet Vol. 11.1 fl (6.2-12.0); Monocyte# 0.53 X10^3/uL; Monocyte% 5.6 % (0-10); NRBC Flagged by Analyzer 0 % (0-5); Neutrophil # 7.46 X10^3/uL (2.7-7.7); Neutrophil % 78.4 % (47-70); Platelet Count 302 K/mm3 (150-450); RBC Distribution Width CV 13.8 % (11.6-14.6); RBC Distribution Width SD 46.5 fl (35.1-43.9); Red Blood Count 4.66 M/mm3 (4.2-5.4); White Blood Count 9.5 K/mm3 (4.4-11.0)
[2023-04-05 12:49] LABS: ALB/GLOB Ratio 0.9 RATIO (0.9-2.4); AST(SGOT) 11 U/L (15-37); Alanine Aminotransfer ALT/SGPT 17 U/L (13-56); Albumin, Serum 3.6 g/dL (3.2-5.0); Alkaline Phosphatase 79 U/L (45-117); Anion Gap 4 (5-15); BUN 12 mg/dL (7-18); BUN/Creat Ratio 12.9 RATIO (10-20); Calcium,Total 8.9 mg/dL (8.5-10.1); Chloride 109 mmol/L (98-107); Cholesterol 215 mg/dL (200); Creatinine, Serum 0.93 mg/dL (0.55-1.02); EST Glomerular Filtration Rate 78 mL/min (>60); Est Glom Filt Rate - Afr Amer 95 mL/min (>60); Ferritin 9 ng/mL (8-252); Globulin 4.1 g/dL (2.2-4.2); Glucose 90 mg/dL (74-106); High Density Lipoprotein 58 mg/dL; Iron 60 ug/dL (50-170); Protein, Total 7.7 g/dL (6.4-8.2); Sodium Level 139 mmol/L (136-145); T4 Free Direct 1.07 ng/dL (0.76-1.46); Thyroid Stim Hormone (TSH) 1.32 uIU/mL (0.358-3.74); Triglycerides 113 mg/dL; Very Low Density Lipoprotein 23 mg/dL (5-40); Vitamin B12 351 pg/mL (211-911); Vitamin D,25 Hydroxy 10.2 ng/mL
== END | disposition home or self-care (01) ==
LOC: BFHLAB 09:08
PROVIDERS: PCP Nurse Practitioner Family; Visit Provider Nurse Practitioner Family
DX: Z00.01 Encounter for general adult medical examination with abnormal findings (principal); R53.83 Other fatigue
CPT/HCPCS: 36415; 80053; 80061; 82306; 82607; 82728; 83540; 84439; 84443; 85025

== ENCOUNTER → 2023-05-16 | Outpatient (CLI) | payer BC, SELFPAY ==
--- NOTE | 2023-05-16 16:10 | RAD_ITS ---
INDICATION: PAIN EXAMINATION/TECHNIQUE: X-RAY - XR Hip Unilateral with Pelvis when performed; 2-3 Views COMPARISON: FINDINGS: PELVIC BONES: No displaced fracture, destructive or sclerotic lesions. Note that overlapping bowel shadows may however obscure fine detail. Sacroiliac joints are unremarkable. No widening of the pubic symphysis. HIPS: The articular structures are unremarkable. No displaced fracture seen in this frontal view. SOFT TISSUES: No soft tissue swelling or gas. RAD/HIP, UNI W/ Pelvis 2-3 Views IMPRESSION: No evidence of displaced pelvic or hip fracture. Electronically Signed: Mumtaz Gutierres DO at 19:40 EST Reading Location ID and State: [facility] / [place] Tel [phone], Service support ,
--- OUTSIDE RECORDS SUMMARY | 2023-05-16 16:21 | XMS RPT_ITS | CCD ---
Author Name Unknown Address [address] [place] [address] Organization [facility] Care Team Providers Care Sterile Processing Tech Name Role Phone BLAKE MOSCOSO, CURT Primary Care Physician PHYSICIAN, NONE Primary Care Physician Unavailab anette LUNDY MD, ABBIE Attending Unavailable HAKEEM BLACKN-TRAMPOLINE TEAM COACH, GABRIELE Attending Unavailronda LOZANO MD., CURT Primary Care Unavailable ABBIE LUNDY MD Attending Unavailable PHYSICIAN, NONE Primary Care Unavailable ABBIE LUNDY MD Attending Unavailable PHYSICIAN, NONE Primary Care Unavailable GARCÍA FABRICATION ENGINEER-TRAMPOLINE TEAM COACH, MICHAEL Attending Unavail able GARCÍA FABRICATION ENGINEER-TRAMPOLINE TEAM COACH, MICHAEL Attending Unavail able GARCÍA FABRICATION ENGINEER-TRAMPOLINE TEAM COACH, MICHAEL Attending Unavail able BELGICA EDWARDS Attending Unavailable JENIFER MOLINA, DR. SOLIS Attending Unavailable PHYSICIAN, NONE Primary Care Unavailable ABBIE LUNDY MD Attending Unavailable PHYSICIAN, NONE Primary Care Unavailable MEHUL FRANCOIS MD Attending Unavail able PHYSICIAN, NONE Primary Care Unavailable Chip SMITH.TRAMPOLINE TEAM COACH, JACY, Ovidio Primary Care Provider MERCEDES AGUAYO Attending Unavailable OVIDIO SEN Primary Care Unavailable MERCEDES AGUAYO Attending Unavailable OVIDIO SEN Primary Care Unavailable ABHIJEET ELI Attending Unavailable KIERSTEN HDZ Unavailable OVIDIO SEN Primary Care Unavailable OVIDIO SEN Primary Care Unavailable MERCEDES AGUAYO Attending Unavailable Medications Current Medications Medication Drug Class(es) Dates Sig (Normalized) Sig (Original) aspirin 81 mg chewable tablet (5 sources) Platelet Aggregation Inhibitor, Nonsteroidal Anti-inflammatory Drug Start: 07-22-2021 aspirin 81 mg oral tablet, chewable Dose : 81 mg = 1 tab(s), Oral, Daily, # 30 tab(s), 6 Refill(s), Pharmacy: [id number], [phone], cm, 07/22/21 13:34:00 EDT, Height, kg, 10/15/20 14:14:00 EDT, Dosing Weight Start Date: 07/22/21 Status: Ordered Cochran-Linyah 0.25 mg-35 mcg oral tablet (1 source) Start: 10-15-2020 take 1 tablet by mouth once daily Cochran-Linyah 0.25 mg-35 mcg oral tablet TAKE 1 TABLET BY MOUTH EVERY DAY Start Date: 10/15/20 Status: Ordered Multivitamins with Vitamin B Complex, Vitamin C, Minerals and L-Methylfolate oral capsule (8 sources) Start: 07-22-2021 take 1 capsule by mouth once daily Multivitamins with Vitamin B Complex, Vitamin C, Minerals and L-Methylfolate oral capsule Dose = 1 cap(s), Oral, Daily, 0 Refill(s) Start Date: 07/22/21 Status: Ordered sertraline 50 mg oral tablet (2 sources) Serotonin Reuptake Inhibitor Start: 08-02-2022 End: 09-01-2022 take 1.5 tablets by mouth once daily sertraline (ZOLOFT) 50 mg tablet Take 1.5 tablets by mouth once daily. 45 tablet 1 08/02/2022 09/01/2022 Active Completed/Discontinued Medications Medication Drug Class(es) Dates Sig (Normalized) Sig (Original) aluminum chloride 200 mg/ml topical solution (5 sources) Start: 06-13-2020 End: 06-21-2022 aluminum chloride (DRYSOL) 20 % external solution Indications: Hyperhidrosis Apply to affected area daily at bedtime. Skin must be dry when applying, shower off in AM. OK to apply to hands, back if needed. 35 mL 11 06/21/2022 Active Problems Active Problems Problem Classification Problem Date Documented Date Episodic/Chronic Anxiety disorders (5 sources) Mixed anxiety and depressive disorder; Translations: [Other specified anxiety disorders] Onset: 04-15-2016 04-15-2016 Chronic Immunizations and screening for infectious disease (8 sources) Rubella non-immune 06-30-2021 Episodic Mood disorders (7 sources) Premenstrual dysphoric disorder; Translations: [Premenstrual dysphoric disorder] Onset: 04-07-2018 04-07-2018 Chronic Other and unspecified benign neoplasm (8 sources) Melanocytic nevus 08-04-2021 Episodic Other screening for suspected conditions (not mental disorders or infectious disease) (2 sources) Encounter for screening for Streptococcus B; Translations: [Encounter for screening for Streptococcus B] Onset: 01-25-2022 Episodic Residual codes; unclassified (2 sources) 36 weeks gestation of ; Translations: [36 weeks gestation of ] Onset: 01-25-2022 Episodic Substance-related disorders (8 sources) Cannabis abuse 06-30-2021 Chronic Unclassified (3 sources) Patient encounter status 01-07-2022 Past or Other Problems Problem Classification Problem Date Documented Da te Episodic/Chronic Cancer of cervix (6 sources) Atypical squamous cells of undetermined significance on cervical Papanicolaou smear; Translations: [Atypical squamous cells of undetermined significance on cytologic smear of cervix (ASC-US)] Onset: 03-26-2022 03-26-2022 Episodic Other complications of (2 sources) Unspecified infection of urinary tract in , unspecified trimester; Translations: [Unspecified infection of urinary tract in , unspecified trimester] Onset: 10-14-2021 Episodic Other and delivery including normal (9 sources) Onset: 05-18-2021 06-26-2021 Episodic Other skin disorders (5 sources) Hyperhidrosis; Translations: [Generalized hyperhidrosis] Onset: 03-28-2020 06-13-2020 Episodic Other skin disorders (1 source) Generalized hyperhidrosis; Translations: [Hyperhidrosis] Onset: 06-13-2020 Episodic Residual codes; unclassified (2 sources) 21 weeks gestation of ; Translations: [21 weeks gestation of ] Onset: 10-14-2021 Episodic Residual codes; unclassified (2 sources) 13 weeks gestation of ; Translations: [13 weeks gestation of ] Onset: 08-19-2021 Episodic Residual codes; unclassified (1 source) Flushing; Translations: [Hot flashes] Onset: 06-21-2022 Episodic Results Test Name Value Interpretation Reference Range Facil ity Vital Signs Date Time Vital Sign Value Performing Clinician Facility 08-02-2022 09:56-0400 Body weight 78.47 kg Mercedes Aguayo APRN.CNP Work Phone: [facility] 08-02-2022 09:56-0400 Diastolic blood pressure 62 mm[Hg] Mercedes Olivier FABRICATION ENGINEER.TRAMPOLINE TEAM COACH Work Phone: [facility] 08-02-2022 09:56-0400 Systolic blood pressure 98 mm[Hg] Mercedes Olivier FABRICATION ENGINEER.TRAMPOLINE TEAM COACH Work Phone: [facility] 04-02-2022 14:09-0500 Body weight 75.48 kg Abhijeet Eli MD Work Phone: [facility] 04-02-2022 14:09-0500 Diastolic blood pressure 64 mm[Hg] Abhijeet Eli MD Work Phone: [facility] 04-02-2022 14:09-0500 Systolic blood pressure 100 mm[Hg] Abhijeet Eli MD Work Phone: [facility] 01-28-2022 20:52-0400 Diastolic blood pressure 63 mm[Hg] IRMA BURGESS MD [facility] 01-28-2022 20:52-0400 Heart rate 89 /min IRMA BURGESS MD [facility] 01-28-2022 20:52-0400 Mean blood pressure 77 mm[Hg] IRMA BURGESS MD [facility] 01-28-2022 20:52-0400 Respiratory rate 20 /min IRMA BURGESS MD [facility] 01-28-2022 20:52-0400 Systolic blood pressure 106 mm[Hg] IRMA BURGESS MD [facility] 01-28-2022 20:42-0400 Body height 162.6 cm IRMA BURGESS MD [facility] 01-28-2022 20:42-0400 Body weight 83.5 kg IRMA BURGESS MD [facility] 01-28-2022 20:42-0400 Body weight 31.58 kg/m2 IRMA BURGESS MD [facility] 01-10-2022 20:39-0400 Body height 162.2 cm ABBIE LUNDY MD [facility] 01-10-2022 20:39-0400 Body weight 83.7 kg ABBIE LUNDY MD [facility] 01-10-2022 20:39-0400 Body weight 31.81 kg/m2 ABBIE LUNDY MD [facility] 01-10-2022 20:05-0400 Body temperature 97.34 [degF] ABBIE LUNDY MD [facility] 01-10-2022 20:05-0400 Diastolic blood pressure 76 mm[Hg] ABBIE LUNDY MD [facility] 01-10-2022 20:05-0400 Heart rate 95 /min ABBIE LUNDY MD [facility] 01-10-2022 20:05-0400 Mean blood pressure 91 mm[Hg] ABBIE LUNDY MD [facility] 01-10-2022 20:05-0400 Systolic blood pressure 120 mm[Hg] ABBIE LUNDY MD [facility] 10-26-2021 14:29-0400 Body temperature 98.78 [degF] MEHUL FRANCOIS MD [facility] 10-26-2021 14:29-0400 Body weight 79.1 kg MEHUL FRANCOIS MD [facility] 10-26-2021 14:29-0400 Diastolic blood pressure 75 mm[Hg] MEHUL FRANCOIS MD [facility] 10-26-2021 14:29-0400 Heart rate 93 /min MEHUL FRANCOIS MD [facility] 10-26-2021 14:29-0400 Respiratory rate 18 /min MEHUL FRANCOIS MD [facility] 10-26-2021 14:29-0400 Systolic blood pressure 112 mm[Hg] MEHUL FRANCOIS MD [facility] Encounters Encounter Date Encounter Type Care Provider Facility Start: 08-02-2022 End: 08-03-2022 ambulatory MERCEDES OLIVIER Facility:[facility] Start: 08-02-2022 End: 08-02-2022 Patient encounter procedure Mercedes Olivier FABRICATION ENGINEER.TRAMPOLINE TEAM COACH Work Phone: OB/Gynecology Procedures Date Procedure Procedure Detail Performing Clinician Start: 05-02-2013 Structure of wisdom tooth (body structure) ABBIE LUNDY MD Structure of wisdom tooth (body structure) ABBIE LUNDY MD Plan of Treatment Date Care Activity Detail Author Start: 03-15-2025 PAP TESTING PAP TESTING [facility] Start: 03-12-2022 CHLAMYDIA SCREENING (18-24) CHLAMYDIA SCREENING (18-24) [facility] Start: 03-12-2022 GC (GONORRHEA) SCREENING (18-24) GC (GONORRHEA) SCREENING (18-24) [facility] Start: 07-15-2020 Urine microalbumin profile DTAP,TDAP,TD (7 - Td or Tdap) [facility] Start: 2012 PEDS TO ADULT TRANSITION ANNUAL ASSESSMENT PEDS TO ADULT TRANSITION ANNUAL ASSESSMENT [facility] Start: 2010 PEDS TO ADULT TRANSITION INITIAL DISCUSSION PEDS TO ADULT TRANSITION INITIAL DISCUSSION [facility] Start: 2008 MENINGOCOCCAL B: Consider based on risk (1 of 2 - Risk Bexsero 2-dose series) MENINGOCOCCAL B: Consider based on risk (1 of 2 - Risk Bexsero 2-dose series) [facility] Start: 2004 PNEUMOCOCCAL (1 - PCV) PNEUMOCOCCAL (1 - PCV) [facility] Start: 1998 COVID-19 VACCINE (#1) COVID-19 VACCINE (#1) [facility] COLPOSCOPY COLPOSCOPY Proce dur Routine ASCUS with positive high risk HPV cervical Ordered: 04/02/2022 [facility] Work Phone: Immunizations Immunization Date Immunization Notes Care Provider [facility] 02-13-2021 influenza, injectabl e, quadrivalent, contains preservative Abhijeet Eli MD Work Phone: [facility] Work Phone: 03-26-2020 influenza, injectabl e, quadrivalent, contains preservative Abhijeet Eli MD Work Phone: [facility] 01-30-2018 influenza, injectabl e, quadrivalent, contains preservative Abhijeet Eli MD Work Phone: [facility] 01-16-2015 influenza, injectabl e, quadrivalent, contains preservative Abhijeet Eli MD Work Phone: [facility] 01-16-2015 meningococcal B, unspecified formulation Abhijeet Eli MD Work Phone: [facility] Work Phone: 01-16-2015 meningococcal polysaccharide (groups A, C, Y and W-135) diphtheria toxoid conjugate vaccine (MCV4P) Abhijeet Eli MD Work Phone: [facility] 03-01-2011 human papilloma viru s vaccine, bivalent Abhijeet Eli MD Work Phone: [facility] Work Phone: 10-09-2010 human papilloma viru s vaccine, bivalent Abhijeet Eli MD Work Phone: [facility] Work Phone: 07-15-2010 human papilloma viru s vaccine, bivalent Abhijeet Eli MD Work Phone: [facility] Work Phone: 07-15-2010 Meningococcal, MCV4, unspecified conjugate formulation(groups A, C, Y and W-135) Abhijeet Eli MD Work Phone: [facility] Work Phone: 07-15-2010 tetanus toxoid, redu benitez diphtheria toxoid, and acellular pertussis vaccine, adsorbed Abhijeet Eli MD Work Phone: [facility] Work Phone: 07-15-2010 varicella virus vaccine Abhijeet Eli MD Work Phone: [facility] Work Phone: 06-07-2003 diphtheria, tetanus toxoids and acellular pertussis vaccine Abhijeet Eli MD Work Phone: [facility] Work Phone: 06-07-2003 measles, mumps and rubella virus vaccine Abhijeet Eli MD Work Phone: [facility] Work Phone: 03-08-2000 pneumococcal conjuga te vaccine, 7 valent Abhijeet Eli MD Work Phone: [facility] Work Phone: 12-28-1999 pneumococcal conjuga te vaccine, 7 valent Abhijeet Eli MD Work Phone: [facility] Work Phone: 08-05-1999 diphtheria, tetanus toxoids and acellular pertussis vaccine Abhijeet Eli MD Work Phone: [facility] Work Phone: 08-05-1999 poliovirus vaccine, inactivated Abhijeet Eli MD Work Phone: [facility] Work Phone: 05-19-1999 haemophilus influenz ae type b vaccine, HbOC conjugate Abhijeet Eli MD Work Phone: [facility] Work Phone: 05-19-1999 measles, mumps and rubella virus vaccine Abhijeet Eli MD Work Phone: [facility] Work Phone: 05-19-1999 varicella virus vaccine Abhijeet Eli MD Work Phone: [facility] Work Phone: 1998 diphtheria, tetanus toxoids and acellular pertussis vaccine Abhijeet Eli MD Work Phone: [facility] Work Phone: 1998 haemophilus influenz ae type b vaccine, HbOC conjugate Abhijeet Eli MD Work Phone: [facility] Work Phone: 1998 hepatitis B vaccine, pediatric or pediatric/adolescent dosage Abhijeet Eli MD Work Phone: [facility] Work Phone: 1998 trivalent poliovirus vaccine, live, oral Abhijeet Eli MD Work Phone: [facility] Work Phone: 1998 diphtheria, tetanus toxoids and acellular pertussis vaccine Abhijeet Eli MD Work Phone: [facility] Work Phone: 1998 haemophilus influenz ae type b vaccine, HbOC conjugate Abhijeet Eli MD Work Phone: [facility] Work Phone: 1998 poliovirus vaccine, inactivated Abhijeet Eli MD Work Phone: [facility] Work Phone: 1998 diphtheria, tetanus toxoids and acellular pertussis vaccine Abhijeet Eli MD Work Phone: [facility] Work Phone: 1998 haemophilus influenz ae type b vaccine, HbOC conjugate Abhijeet Eli MD Work Phone: [facility] Work Phone: 1998 hepatitis B vaccine, pediatric or pediatric/adolescent dosage Abhijeet Eli MD Work Phone: [facility] Work Phone: 1998 poliovirus vaccine, inactivated Abhijeet Eli MD Work Phone: [facility] Work Phone: 1998 hepatitis B vaccine, pediatric or pediatric/adolescent dosage Abhijeet Eli MD Work Phone: [facility] Work Phone: Payers Date Payer Category Payer Unknown [employer] [id number] 2021-Present [phone] [address] [place] [address] PPO [id number] 2021 Unknown [id number] 1998 Unknown [id number] 1998 Unknown [id number] 1998 Unknown [id number] 1998 Unknown [id number] 1998 Unknown [id number] 1998 Unknown [id number] 1998 Unknown [id number] 1998 Unknown [id number] 1998 Unknown [id number] 1998 Unknown [id number] 1998 Unknown [id number] Social History Date Type Detail Facility Start: 10-15-2020 Never smoked t obacco (finding) [facility] Sex Assigned At [facility] Start: 03-15-2022 Tobacco smoking stat [facility] Smokes tobacco daily [facility] Work Phone: End: 03-15-2022 History of tobacco use Cigarette Smoker [facility] Work Phone: Start: 03-15-2022 End: 06-21-2022 Cigarettes smoked current (pack per day) - Reported 0.[address] [facility] Start: 03-15-2022 End: 06-21-2022 Tobacco use and exposure Smokeless tobacco non-user [facility] Work Phone: Start: 03-15-2022 End: 08-02-2022 Alcohol intake Current non-drinker of alcohol (finding) [facility] Start: 01-01-2020 History SDOH Social Connections Phone [address] [facility] Start: 01-01-2020 History SDOH Social Connections Get Together [address] [facility] Start: 01-01-2020 History SDOH Social Connections Protestant [address] [facility] Start: 01-01-2020 History SDOH Social Connections Meetings [address] [facility] Start: 01-01-2020 History SDOH Social Connections Living [address] [facility] Start: 01-01-2020 History SDOH Physica l Activity DPW [address] [facility] Start: 01-01-[address] [facility] Start: 03-15-2022 Tobacco Comment Mom smokes out side or another room [facility] Start: 1998 Sex Assigned At Female C [facility] Work Phone: Start: 03-05-2022 End: 03-15-2022 Exposure to SARS-CoV-2 (event) Not sure [facility] Work Phone: Start: 06-21-2022 Tobacco smoking stat us RIIS Ex-smoker [facility] Work Phone: End: 03-15-2022 History of tobacco use Current smoker [facility] Work Phone: Functional Status Date Assessment Result Facility 01-29-2022 Functional Status Independent [facility] 01-29-2022 Functional Status Sleeping [facility] 01-29-2022 Functional Status Ambulation in Room [facility] 01-29-2022 Functional Status [facility]havna [facility] 01-10-2022 Functional Status Repositions self [facility] 10-26-2021 Functional Status N/A [facility] Mental Status Date Assessment Result Facility 01-29-2022 Mental Status Orientation Oriented x 4 [facility] 10-26-2021 Mental Status Orientation Oriented x 4 [facility] Clinical Notes 07-03-2021 to 08-02-2022 Mercedes Aguayo APRN.CNP - 08/02/2022 9:49 AM EDTTelephone Encounter - Mia Dave LPN - 06/21/2022 9:38 AM ESTTelephone Encounter - Mia Dave LPN - 06/18/2022 2:04 PM ESTLaboratory Note Date & Type Note Facility 08-02-2022 Note HNO ID: [id number] Author: Mercedes Aguayo APRN.CNP Service: ? Author Type: Nurse Practitioner Type: Progress Notes Filed: 08/02/2022 10:17 AM Note Text: Obstetric History T1 L1 SAB0 IAB0 Ectopic0 Multiple0 Live Births0 Name of Baby 1: Aylin Date: 02/05/22 GA: Not recorded Delivery: Vaginal, Spontaneous Apgar1: Not recorded Apgar5: Not recorded Living: Not recorded Quyen Howell is a 22 year old female who presents for Zoloft follow up HPI: Patient states that she is doing much better on the Zoloft. Patient states that she still is having some racing thoughts and a feeling of doom at times. She would like to increase the medication to see if she can get more relief from these feelings. OB History T1 L1 SAB0 IAB0 Ectopic0 Multiple0 Live Births0 Heel Top Lift Splitter History LMP: 07/19/2022, Having periods Age at Menarche: Age at First : Age at Menopause: Heel Top Lift Splitter History Comments: Sexual Activity: Yes; Male Contraception: Pill PAST MEDICAL HISTORY Diagnosis Date Depression with anxiety 04/15/2016 Hyperhidrosis 2019 Menarche 11/30/2009 First menstrual period PMH - PAST MEDICAL HISTORY OF 06/02/2003 NORMAL COLOR VISION PAST SURGICAL HISTORY Procedure Laterality Date NONE FAMILY HISTORY Problem Relation Age of Onset Hypertension Mother Depression Mother No Known Problems Father Hypertension Maternal Grandmother Bipolar disorder Maternal Grandmother Hypertension Maternal Grandfather Emphysema Paternal Grandmother other (ALS) Paternal Grandfather Diabetes Other adult onset diabetes runs in the family Social History Tobacco Use Smoking status: Former Packs/day: 0.50 Years: 6.00 Pack years: 3.00 Types: Cigarettes Quit date: 03/15/2022 Years since quittin.3 Smokeless tobacco: Never Tobacco comments: Mom smokes outside or another room Vaping Use Vaping Use: Never used Substance Use Topics Alcohol use: No Drug use: No Current Outpatient Medications Medication Sig sertraline (ZOLOFT) 50 mg tablet Take 1 tablet by mouth once daily. norgestimate 0.25 mg-ethinyl estradiol 35 mcg (MONO-LINYAH) 0.25-35 mg-mcg per tablet Take 1 tablet by mouth once daily. aluminum chloride (DRYSOL) 20 % external solution Apply to affected area daily at bedtime. Skin must be dry when applying, shower off in AM. OK to apply to hands, back if needed. buPROPion XL (WELLBUTRIN XL) 300 mg 24 hr tablet Take 1 tablet by mouth once daily. (Patient not taking: Reported on 08/02/2022) No current facility-administered medications for this visit. Allergies As of Date: 08/02/2022 (No Known Allergies) Fully Assessed 08/02/2022 REVIEW OF SYSTEMS Expanded ROS: N/A Allergies and current medication updated:Yes EXAM: BP 98/62 Wt 173 lb (78.5kg) LMP 07/19/2022 GENERAL: pleasant, female in no apparent distress HEENT: Normocephalic, atraumatic, and no lesions CHEST: Normal inspiratory effort NEURO: alert and oriented x3,exam grossly non-focal EXTREMITIES: normal ASSESSMENT/PLAN: 1. Moderate episode of recurrent major depressive disorder (HCC) - ICD9: 296.32, ICD10: F33.1 Increase Zoloft to 75 mg daily for the next 3 to 4 weeks, if not noticing enough improvement discussed with patient to increase to 100 mg and notify me through MyChart or phone the office. Mercedes Aguayo APRN.YA Medical Decision Making: Problems: Low: Stable chronic illness Risk: Low: Low risk from testing/treatment Moderate: Drug management Medical Decision Making Level: 3 - Low [facility] 08-02-2022 History of Presen t illness Narrative Obstetric History T1 L1 SAB0 IAB0 Ectopic0 Multiple0 Live Births0 Name of Baby 1: Aylin Date: 02/05/22 GA: Not recorded Delivery: Vaginal, Spontaneous Apgar1: Not recorded Apgar5: Not recorded Living: Not recorded Quyen Howell is a 22 year old female who presents for Zoloft follow up HPI: Patient states that she is doing much better on the Zoloft. Patient states that she still is having some racing thoughts and a feeling of doom at times. She would like to increase the medication to see if she can get more relief from these feelings. OB History T1 L1 SAB0 IAB0 Ectopic0 Multiple0 Live Births0 Heel Top Lift Splitter History LMP: 07/19/2022, Having periods Age at Menarche: Age at First : Age at Menopause: Heel Top Lift Splitter History Comments: Sexual Activity: Yes; Male Contraception: Pill PAST MEDICAL HISTORY Diagnosis Date Depression with anxiety 04/15/2016 Hyperhidrosis 2020 Menarche 11/30/2009 First menstrual period PMH - PAST MEDICAL HISTORY OF 06/02/2003 NORMAL COLOR VISION PAST SURGICAL HISTORY Procedure Laterality Date NONE FAMILY HISTORY Problem Relation Age of Onset Hypertension Mother Depression Mother No Known Problems Father Hypertension Maternal Grandmother Bipolar disorder Maternal Grandmother Hypertension Maternal Grandfather Emphysema Paternal Grandmother other (ALS) Paternal Grandfather Diabetes Other adult onset diabetes runs in the family Social History Tobacco Use Smoking status: Former Packs/day: 0.50 Years: 6.00 Pack years: 3.00 Types: Cigarettes Quit date: 03/15/2022 Years since quittin.3 Smokeless tobacco: Never Tobacco comments: Mom smokes outside or another room Vaping Use Vaping Use: Never used Substance Use Topics Alcohol use: No Drug use: No Current Outpatient Medications Medication Sig sertraline (ZOLOFT) 50 mg tablet Take 1 tablet by mouth once daily. norgestimate 0.25 mg-ethinyl estradiol 35 mcg (MONO-LINYAH) 0.25-35 mg-mcg per tablet Take 1 tablet by mouth once daily. aluminum chloride (DRYSOL) 20 % external solution Apply to affected area daily at bedtime. Skin must be dry when applying, shower off in AM. OK to apply to hands, back if needed. buPROPion XL (WELLBUTRIN XL) 300 mg 24 hr tablet Take 1 tablet by mouth once daily. (Patient not taking: Reported on 08/02/2022) No current facility-administered medications for this visit. Allergies As of Date: 08/02/2022 (No Known Allergies) Fully Assessed 08/02/2022 REVIEW OF SYSTEMS Expanded ROS: N/A Allergies and current medication updated:Yes EXAM: BP 98/62 Wt 173 lb (78.5kg) LMP 07/19/2022 GENERAL: pleasant, female in no apparent distress HEENT: Normocephalic, atraumatic, and no lesions CHEST: Normal inspiratory effort NEURO: alert and oriented x3,exam grossly non-focal EXTREMITIES: normal ASSESSMENT/PLAN: 1. Moderate episode of recurrent major depressive disorder (HCC) - ICD9: 296.32, ICD10: F33.1 Increase Zoloft to 75 mg daily for the next 3 to 4 weeks, if not noticing enough improvement discussed with patient to increase to 100 mg and notify me through MyChart or phone the office. Mercedes Aguayo APRN.YA Medical Decision Making: Problems: Low: Stable chronic illness Risk: Low: Low risk from testing/treatment Moderate: Drug management Medical Decision Making Level: 3 - Low documented in this encounter [facility] 06-21-2022 Note HNO ID: [id number] Author: Mercedes Aguayo APRN.CNP Service: ? Author Type: Nurse Practitioner Type: Progress Notes Filed: 06/21/2022 11:53 AM Note Text: Quyen Howell is a 22 year old female who presents for problem visit increase in depression. HPI: Patient presents today with increase depression and anxiety. She has been dealing with a lot of family situations and feels that it has contributed to to the increase in depression along with may be some depression. She delivered a baby boy on 02/04/2022. In December 2021 her mscriy-pf-otr of cancer and now her bzzszn-hi-bnz has a new partner that the family is very unhappy with and is causing a lot of discord in the family. OB History T1 L1 SAB0 IAB0 Ectopic0 Multiple0 Live Births0 Heel Top Lift Splitter History LMP: 06/16/2022, Having periods Age at Menarche: Age at First : Age at Menopause: Heel Top Lift Splitter History Comments: Sexual Activity: Yes; Male Contraception: Pill PAST MEDICAL HISTORY Diagnosis Date Depression with anxiety 04/15/2016 Hyperhidrosis 2020 Menarche 11/30/2009 First menstrual period PMH - PAST MEDICAL HISTORY OF 06/02/2003 NORMAL COLOR VISION PAST SURGICAL HISTORY Procedure Laterality Date NONE FAMILY HISTORY Problem Relation Age of Onset Hypertension Mother Depression Mother No Known Problems Father Hypertension Maternal Grandmother Bipolar disorder Maternal Grandmother Hypertension Maternal Grandfather Emphysema Paternal Grandmother other (ALS) Paternal Grandfather Diabetes Other adult onset diabetes runs in the family Social History Tobacco Use Smoking status: Former Packs/day: 0.50 Years: 6.00 Pack years: 3.00 Types: Cigarettes Quit date: 03/15/2022 Years since quittin.2 Smokeless tobacco: Never Tobacco comments: Mom smokes outside or another room Vaping Use Vaping Use: Never used Substance Use Topics Alcohol use: No Drug use: No Current Outpatient Medications Medication Sig buPROPion XL (WELLBUTRIN XL) 150 mg 24 hr tablet Take 1 tablet by mouth once daily. (Patient not taking: Reported on 06/21/2022) buPROPion XL (WELLBUTRIN XL) 300 mg 24 hr tablet Take 1 tablet by mouth once daily. norgestimate 0.25 mg-ethinyl estradiol 35 mcg (MONO-LINYAH) 0.25-35 mg-mcg per tablet Take 1 tablet by mouth once daily. aluminum chloride (DRYSOL) 20 % external solution Apply to affected area daily at bedtime. Skin must be dry when applying, shower off in AM. OK to apply to hands, back if needed. No current facility-administered medications for this visit. Allergies As of Date: 06/21/2022 (No Known Allergies) Fully Assessed 06/21/2022 REVIEW OF SYSTEMS Expanded ROS: N/A Allergies and current medication updated:Yes EXAM: Wt 169 lb 12.8 oz (77.0kg) LMP 06/16/2022 GENERAL: pleasant, female in no apparent distress HEENT: Normocephalic, atraumatic, and no lesions CHEST: Normal inspiratory effort NEURO: alert and oriented x3,exam grossly non-focal EXTREMITIES: normal ASSESSMENT/PLAN: 1. Moderate episode of recurrent major depressive disorder (HCC) - ICD9: 296.32, ICD10: F33.1 (primary diagnosis) - Started on Zoloft 50 mg - follow up in 6 weeks 2. Hyperhidrosis - ICD9: 705.21, ICD10: R61 - ALUMINUM CHLORIDE 20 % TOPICAL SOLUTION 3. Hot flashes - ICD9: 782.62, ICD10: R23.2 - Thyroid panel ordered she will have done at her work Mercedes Aguayo APRN.TRAMPOLINE TEAM COACH Medical Decision Making: Problems: Moderate: 1+ chronic illnesses with change Data: Unique test(s) ordered: 3+ Risk: Low: Low risk from testing/treatment Moderate: Drug management Medical Decision Making Level: 4 - Moderate [facility] 06-21-2022 Miscellaneous Notes Pt never viewed [employer] message. Has appt this am. Mia Dave LPN Message left asking pt to provide further information as to how she is feeling as far as her depression/angry feeling. Wanting to verify that she is not having any thoughts of self harm or harm to others. Mia Dave LPN documented in this encounter [facility] 04-02-2022 Note HNO ID: [id number] Author: Abhijeet Eli MD Service: ? Author Type: Physician Type: Progress Notes Filed: 04/02/2022 3:08 PM Note Text: Volunteer Recruiter offered: Patient declines. Quyen is a 21 year old Female who presents today for a colposcopy. The patient's last pap smear was ASCUS with positive HPV from March 2022. Patient has a history of abnormal pap: Yes. The patient has had prior treatment: none. test: negative UNIVERSAL PROTOCOL / SAFETY CHECKLIST Procedure to be Performed: Colposcopy Sign In: A Moment of CARE was completed. Personnel directly involved with the procedure wore the appropriate PPE (Personal Protective Equipment). Patient/Surrogate Stated/Verified: PATIENT VERIFIED(optional for EMERGENT procedures): Patient name, Date of , Relevant allergies, and The intended procedure Time Out Communication: Intended patient and procedure match the source documents. Consent documented and matches the intended procedure. Sign Out: SIGN OUT (optional for EMERGENT procedures): All specimen containers correctly labeled. All instruments, equipment, possible retained foreign bodies accounted for. Post-procedure follow-up management communicated and Plan of Care Visit completed when applicable. PROCEDURE: EXTERNAL GENITALIA: Normal in appearance without lesions VAGINA: Normal in appearance without lesions CERVIX: Speculum placed in vagina and excellent visualization of cervix achieved. Cervix swabbed x 3 with 3% acetic acid solution. Cervix grossly normal. Squamocolumnar junction visualized. No acetowhite changes, punctations, mosaicism or atypical vasculature noted. BIOPSY: Done at 6:00 and 12:00 ECC: not done - entire transformation zone visualized HEMOSTASIS: Obtained with pressure Procedure Summary: Patient tolerated procedure well and colposcopy was adequate. ASSESSMENT: HPV effect PLAN: Specimens labeled and sent to Pathology. Will notify patient of results in 1-2 weeks. Post-procedure instructions reviewed and written material given to the patient. Abhijeet Eli DO [facility] 04-02-2022 History of Presen t illness Narrative Volunteer Recruiter offered: Patient declines. Quyen is a 21 year old Female who presents today for a colposcopy. The patient's last pap smear was ASCUS with positive HPV from March 2022. Patient has a history of abnormal pap: Yes. The patient has had prior treatment: none. test: negative UNIVERSAL PROTOCOL / SAFETY CHECKLIST Procedure to be Performed: Colposcopy Sign In: A Moment of CARE was completed. Personnel directly involved with the procedure wore the appropriate PPE (Personal Protective Equipment). Patient/Surrogate Stated/Verified: PATIENT VERIFIED(optional for EMERGENT procedures): Patient name, Date of , Relevant allergies, and The intended procedure Time Out Communication: Intended patient and procedure match the source documents. Consent documented and matches the intended procedure. Sign Out: SIGN OUT (optional for EMERGENT procedures): All specimen containers correctly labeled. All instruments, equipment, possible retained foreign bodies accounted for. Post-procedure follow-up management communicated and Plan of Care Visit completed when applicable. PROCEDURE: EXTERNAL GENITALIA: Normal in appearance without lesions VAGINA: Normal in appearance without lesions CERVIX: Speculum placed in vagina and excellent visualization of cervix achieved. Cervix swabbed x 3 with 3% acetic acid solution. Cervix grossly normal. Squamocolumnar junction visualized. No acetowhite changes, punctations, mosaicism or atypical vasculature noted. BIOPSY: Done at 6:00 and 12:00 ECC: not done - entire transformation zone visualized HEMOSTASIS: Obtained with pressure Procedure Summary: Patient tolerated procedure well and colposcopy was adequate. ASSESSMENT: HPV effect PLAN: Specimens labeled and sent to Pathology. Will notify patient of results in 1-2 weeks. Post-procedure instructions reviewed and written material given to the patient. Abhijeet Eli DO documented in this encounter [facility] 04-02-2022 Instructions Lashon Tavarez MA - 04/02/2022 1:41 PM EST YOUR RECOVERY It may take a few weeks for your cervix to heal. While your cervix heals, you may have: - Vaginal bleeding (less than a normal menstrual period) - Mild cramping - A brown-black vaginal discharge (similar to coffee grounds) which is a result of the paste used to help stop bleeding from the procedure Do NOT put anything in the vagina for 1 week after your colposcopy if your doctor does a biopsy of your cervix. This includes sex, tampons, and douches. If you have any discomfort, you may take an over the counter pain medication (motrin, advil, ibuprofen, tylenol, etc). If this does not relieve your discomfort, contact your doctor's office for a prescription strength pain medication. It is okay to wear a sanitary pad until the discharge and spotting stops. RISKS Although problems seldom occur with colposcopy, there can be some complications. You may feel faint during and shortly after the procedure as well as have some bleeding and vaginal discharge after the procedure. There is also a risk of infection after the procedure. These complications are rare and can be easily treated. You should contact you doctor is you have any of the following: - Heavy bleeding (more than your normal period) - Bleeding with clots - Severe abdominal pain - Fever (more than 100.4F) - Foul smelling vaginal discharge RESULTS If a biopsy was taken, we will have the results of your biopsy in 1-2 weeks. If you do not hear the results of your biopsy after 2 weeks, please contact your physicians office for the results. Depending on the biopsy results, your doctor will determine your follow up plan which may include further testing or treatments. STAYING HEALTHY After the procedure, you will need to see your doctor for follow up visits during the year. At these visits your doctor will check the health of your cervix with a pap smear. After three normal pap smears, your doctor will allow you to return to having exams once a year. If you have another abnormal pap smear, you may need closer follow up for longer or you may need additional treatment. By making a few lifestyle changes after the procedure, you can help protect the health of your cervix: - Have regular pelvic exams and pap smears as ordered by your doctor. - Stop smoking as smoking increases your risk of developing a cancer of the cervix - If you have more than one sexual partner, limit your number of partners and use condoms to reduce your risks of STDs. If you have any additional questions, please contact your doctor's office. documented in this encounter [facility] 03-26-2022 Miscellaneous Notes Called patient back and scheduled colposcopy Attempted to leave message with patient but voicemail not set up. Please try to call her again with results and to schedule appointment ----- Message from Kiersten Hdz APRN.TRAMPOLINE TEAM COACH sent at 03/26/2022 7:32 AM EST ----- Please notify Quyen Howell - Pap ASCUS, HRHPV positive. Needs colposcopy with DM or RR due to current and past abnormal Pap/HPV tests. Colposcopy ordered and placed on problem list. Kiersten Hdz APRN.TRAMPOLINE TEAM COACH documented in this encounter [facility] 03-15-2022 Note HNO ID: [id number] Author: Mercedes Aguayo APRN.CNP Service: ? Author Type: Nurse Practitioner Type: Progress Notes Filed: 03/15/2022 10:45 AM Note Text: Quyen is a 21 year old who presents for an annual gynecologic exam. on 02/04/22, boy- doing good she would like to start back on her Wellbutrin- she is noticing the short temper and mood swing starting up Menses: not had a period since delivery started back on OCP 2 weeks ago. Contraception: combined hormonal contraceptives HPV vaccine: Yes Last Pap: 03/24/2021 abnormal, LSIL HPV: 01/11/2020 positive History of abnormal pap: Yes Last mammogram: never Sexually active: Yes Pain with intercourse: No OB History T1 L1 SAB0 IAB0 Ectopic0 Multiple0 Live Births0 Heel Top Lift Splitter History LMP: 03/02/2021, Having periods Age at Menarche: Age at First : Age at Menopause: Heel Top Lift Splitter History Comments: Sexual Activity: Yes; Male Contraception: Pill PAST MEDICAL HISTORY Diagnosis Date Depression with anxiety 04/15/2016 Hyperhidrosis 2020 Menarche 11/30/2009 First menstrual period PMH - PAST MEDICAL HISTORY OF 06/02/2003 NORMAL COLOR VISION PAST SURGICAL HISTORY Procedure Laterality Date NONE FAMILY HISTORY Problem Relation Age of Onset Hypertension Mother Depression Mother No Known Problems Father Hypertension Maternal Grandmother Bipolar disorder Maternal Grandmother Hypertension Maternal Grandfather Emphysema Paternal Grandmother other (ALS) Paternal Grandfather Diabetes Other adult onset diabetes runs in the family SOCIAL HISTORY Social History Tobacco Use Smoking status: Every Day Packs/day: 0.50 Years: 6.00 Pack years: 3.00 Types: Cigarettes Smokeless tobacco: Never Tobacco comments: Mom smokes outside or another room Vaping Use Vaping Use: Never used Substance Use Topics Alcohol use: No Drug use: No REVIEW OF SYSTEMS Abdomen: No abdominal pain, nausea, vomiting, diarrhea, or constipation. No bloating, early satiety, indigestion, or increased flatulence. Bladder: No dysuria, gross hematuria, urinary frequency, urinary urgency, or incontinence. Breast: No breast lumps, nipple d/c, overlying skin changes, redness or skin retraction. Allergies and current medication updated:Yes EXAM: Ht 5' 4 (1.63m) Wt 168 lb 12.8 oz (76.6kg) LMP 03/02/2021 BMI 28.96 kg/(m2). GENERAL: pleasant, female in no apparent distress HEENT: Normocephalic, atraumatic, mucus membranes moist, and no lesions NECK: Supple, full range of motion, no adenopathy, and thyroid normal DERMATOLOGY: Normal, without lesions, non-icteric, and non-hirsute BREAST: soft, non-tender, symmetric, no dominant mass, normal nipple-areolar complex, no lymphadenopathy, and no nipple discharge CHEST: Normal inspiratory effort ABDOMEN: soft, non-tender, and no masses PELVIC: external genitalia normal, normal Bartholin's glands, urethra, Ansted's glands, no vulvar lesions, no cervical lesions, good vaginal support, physiologic discharge present, normal appearing perineal body and perianal region BIMANUAL: uterus normal size, shape and consistency, no adnexal masses, non-tender, and no cervical motion tenderness RECTOVAGINAL: deferred. NEURO: alert and oriented x3,exam grossly non-focal EXTREMITIES: normal ASSESSMENT/PLAN: 1) Health maintenance: Pap done with reflex HPV. Mammogram starting age 40. Nutrition, exercise and routine health maintenance exams reviewed. Calcium/Vitamin D supplementation information provided. 2) Contraception: combined hormonal contraceptives. Contraceptive options reviewed and information provided. 3) STD screening: Declined STD check. 4) Follow up one year or sooner as needed 5) reorder Wellalex Aguayo APRN.[facility] 01-29-2022 Hospital Discharg e instructions Patient Education 01/29/2022 08:13:30 7 - Labor and Delivery Outpatient Instructions (CUSTOM) [facility] AND DELIVERY OUTPATIENT HOME-GOING INSTRUCTIONS _X_ You are to follow up with your physician in ___ days/weeks. ACTIVITY ___ Bedrest ___Activity as tolerated ___ No work/school for ___ days. ___Other PRESCRIPTION GIVEN ___Yes NAUSEA/VOMITING ___ Take small, frequent amounts of clear liquids. Avoid fruit juices and milk. ___ Increase fluid intake to a minimum of 8 ounces of fluid every hour while awake. ___ Soft diet. Rice, crackers, bananas, Jell-O, cooked carrots, applesauce. ___ [place] diet. Avoid caffeine, chocolate, alcohol, spiced/greasy foods. URINARY TRACT INFECTION ___ Drink 8-12 glasses of water every day. ___ Urinate frequently; do not limit fluids to reduce frequency of urination. ___ Call your physician if burning and frequency with urination returns after taking all your medication. ___ Call your physician if you have a temperature of 100.4 degrees Fahrenheit or higher. ___ Wipe from front to back. SIGNS OF PRE-ECLAMPSIA ___ Severe heartburn. ___ Persistent headache not relieved by Tylenol. ___ Increased in swelling of face, hands and feet. ___ Blurred vision, double vision, or spots in the eyes. ___ Persistent vomiting. ___ *Convulsions or seizures. LABOR ___ Restrict activity. ___ Drink 8-12 glasses of water every day. ___ Urinate frequently ___ Pelvic rest. No sexual intercourse/ Call your physician if you experience: ___ Increase in vaginal discharge, leaking fluid, or vaginal bleeding. ___ More than 4, 5, or 6 contractions in one hour. ___ Burning and frequency with urination. DECREASED MOVEMENT ___ Lie down on your left side, drink some fluids and relax. Count the movements. You need to have 10 movements in 2 hours. ___ If you do not feel the 10 movements, call your physician. OTHER ___ After an exam you may experience some spotting or discharge. As long as it is not bright red and heavy like a period or continues to leak as if your water broke, it is to be expected. ___ LABOR Call your physician if you experience: ___ Painful uterine contractions every ___ minutes for ___ hours. ___A gush or continuous trickle of watery discharge. COME TO THE HOSPITAL AND CALL PHYSICIAN IF: ___ Your abdomen feels continually firm. ___ *Bleeding is bright red and enough to saturate a pad in one hour or less. *Call 911 or go to the nearest Emergency Room for assistance. Form [id number] D: 04/09 Document Released: 04/18/2006 Document Revised: 04/06/2012 Document Reviewed: 04/18/2006 [facility] Patient Information 2012 [employer]. Follow Up Care 01/28/2022 20:27:05 With:IRMA BURGESS MD Address: [address] [facility] [place], [place] [id number]- [phone] When: Unknown Comments:Follow-up as scheduled [facility] 01-10-2022 Hospital Discharg e instructions Patient Education 01/10/2022 21:06:08 7 - Labor and Delivery Outpatient Instructions (CUSTOM) [facility] AND DELIVERY OUTPATIENT HOME-GOING INSTRUCTIONS _X_ You are to follow up with your physician in _1-2__ days. ACTIVITY ___ Bedrest __X_Activity as tolerated ___ No work/school for ___ days. ___Other PRESCRIPTION GIVEN ___Yes NAUSEA/VOMITING ___ Take small, frequent amounts of clear liquids. Avoid fruit juices and milk. ___ Increase fluid intake to a minimum of 8 ounces of fluid every hour while awake. ___ Soft diet. Rice, crackers, bananas, Jell-O, cooked carrots, applesauce. ___ [place] diet. Avoid caffeine, chocolate, alcohol, spiced/greasy foods. URINARY TRACT INFECTION ___ Drink 8-12 glasses of water every day. ___ Urinate frequently; do not limit fluids to reduce frequency of urination. ___ Call your physician if burning and frequency with urination returns after taking all your medication. ___ Call your physician if you have a temperature of 100.4 degrees Fahrenheit or higher. ___ Wipe from front to back. SIGNS OF PRE-ECLAMPSIA ___ Severe heartburn. ___ Persistent headache not relieved by Tylenol. ___ Increased in swelling of face, hands and feet. ___ Blurred vision, double vision, or spots in the eyes. ___ Persistent vomiting. ___ *Convulsions or seizures. LABOR ___ Restrict activity. __X_ Drink 8-12 glasses of water every day. __X_ Urinate frequently __X_ Pelvic rest. No sexual intercourse/ Call your physician if you experience: _X__ Increase in vaginal discharge, leaking fluid, or vaginal bleeding. _X__ More than 4, 5, or 6 contractions in one hour. _X__ Burning and frequency with urination. DECREASED MOVEMENT __X_ Lie down on your left side, drink some fluids and relax. Count the movements. You need to have 10 movements in 2 hours. __X_ If you do not feel the 10 movements, call your physician. OTHER ___ After an exam you may experience some spotting or discharge. As long as it is not bright red and heavy like a period or continues to leak as if your water broke, it is to be expected. ___ LABOR Call your physician if you experience: ___ Painful uterine contractions every ___ minutes for ___ hours. ___A gush or continuous trickle of watery discharge. COME TO THE HOSPITAL AND CALL PHYSICIAN IF: _X__ Your abdomen feels continually firm. __X_ *Bleeding is bright red and enough to saturate a pad in one hour or less. *Call 911 or go to the nearest Emergency Room for assistance. Form [id number] D: 04/09 Document Released: 04/18/2006 Document Revised: 04/06/2012 Document Reviewed: 04/18/2006 [facility] Patient Information 2012 [employer] [facility]. Follow Up Care 01/10/2022 19:55:51 With:ABBIE LUNDY MD Address: [address] [place] [address] [facility] [place], [place] [id number] [phone] When:1-2 days [facility] 11-29-2021 Note . MICRO - Microbiology PROCEDURE: Urine Culture [*1] SOURCE: Urine, Clean Catch BODY SITE: COLLECTED DATE/TIME: 11/27/2021 14:19 EDT RECEIVED DATE/TIME: 11/27/2021 20:26 EDT START DATE/TIME: 11/27/2021 20:27 EDT FREE TEXT SOURCE: FINAL REPORTS Final Report [] Verified Date/Time/Personnel: 11/29/2021 07:29 EDT 50,000 - 100,000 cfu/ml Mixed growth consistent with normal urogenital seema. PRELIMINARY REPORTS Preliminary Report [] Verified Date/Time/Personnel: 11/28/2021 09:27 EDT No growth to date Performing Locations *1: This test was performed at: [facility], [address] [place] [address], [phone] , [facility] ([place]) 10-26-2021 Hospital Discharg e instructions Patient Education 10/26/2021 16:05:58 Diarrhea, Unknown Cause Diarrhea with Uncertain Cause (Adult) Diarrhea is when stools are loose and watery. This can be caused by: Viral infections Bacterial infections Food poisoning Parasites Irritable bowel syndrome (IBS) Inflammatory bowel diseases such as ulcerative colitis, Crohn's disease, and celiac disease Food intolerance, such as to lactose, the sugar found in milk and milk products Reaction to medicines like antibiotics, laxatives, cancer drugs, and antacids Along with diarrhea, you may also have: Abdominal pain and cramping Nausea and vomiting Loss of bowel control Fever and chills Bloody stools In some cases, antibiotics may help to treat diarrhea. You may have a stool sample test. This is done to see what is causing your diarrhea, and if antibiotics will help treat it. The results of a stool sample test may take up to 2 days. The healthcare provider may not give you antibiotics until he or she has the stool test results. Diarrhea can cause dehydration. This is the loss of too much water and other fluids from the body. When this occurs, body fluid must be replaced. This can be done with oral rehydration solutions. Oral rehydration solutions are available at drugstores and grocery stores without a prescription. Sports drinks are not the best choice if you are very dehydrated. They have too much sugar and not enough electrolytes. Home care Follow all instructions given by your healthcare provider. Rest at home for the next 24 hours, or until you feel better. Avoid caffeine, tobacco, and alcohol. These can make diarrhea, cramping, and pain worse. If taking medicines: Drmh-zqq-[id number] nausea and diarrhea medicines are generally OK unless you experience fever or blood stool. Check with your doctor first in those circumstances. You may use acetaminophen or NSAID medicines like ibuprofen or naproxen to reduce pain and fever. Don t use these if you have chronic liver or kidney disease, or ever had a stomach ulcer or gastrointestinal bleeding. Don't use NSAID medicines if you are already taking one for another condition (like arthritis) or are on daily aspirin therapy (such as for heart disease or after a stroke). Talk with your healthcare provider first. If antibiotics were prescribed, be sure you take them until they are finished. Don t stop taking them even when you feel better. Antibiotics must be taken as a full course. To prevent the spread of illness: Remember that washing with soap and water and using alcohol-based neurological surgery teacher is the best way to prevent the spread of infection. Dry your hands with a single use towel (like a paper towel). Clean the toilet after each use. Wash your hands before eating. Wash your hands before and after preparing food. Keep in mind that people with diarrhea or vomiting should not prepare food for others. Wash your hands after using cutting boards, countertops, and knives that have been in contact with raw foods. Wash and then peel fruits and vegetables. Keep uncooked meats away from cooked and uadkn-ne-rhu foods. Use a food thermometer when cooking. Cook poultry to at least 165 F (74 C). Cook ground meat (beef, veal, pork, magdaleno) to at least 160 F (71 C). Cook fresh beef, veal, magdaleno, and pork to at least 145 F (63 C). Don t eat raw or undercooked eggs (poached or soumya side up), poultry, meat, or unpasteurized milk and juices. Food and drinks The main goal while treating vomiting or diarrhea is to prevent dehydration. This is done by taking small amounts of liquids often. Keep in mind that liquids are more important than food right now. Drink only small amounts of liquids at a time. Don t force yourself to eat, especially if you are having cramping, vomiting, or diarrhea. Don t eat large amounts at a time, even if you are hungry. If you eat, avoid fatty, greasy, spicy, or fried foods. Don t eat dairy foods or drink milk if you have diarrhea. These can make diarrhea worse. During the first 24 hours you can try: Oral rehydration solutions. Sports drinks may be used if you are not too dehydrated and are otherwise healthy. Soft drinks without caffeine Leonie rajeev Water (plain or flavored) Decaf tea or coffee Clear broth, consomm , or bouillon Gelatin, popsicles, or frozen fruit juice bars The second 24 hours, if you are feeling better, you can add: Hot cereal, plain toast, bread, rolls, or crackers Plain noodles, rice, mashed potatoes, chicken noodle soup, or rice soup Unsweetened canned fruit (no pineapple) Bananas As you recover: Limit fat intake to less than 15 grams per day. Don t eat margarine, butter, oils, mayonnaise, sauces, gravies, fried foods, peanut butter, meat, poultry, or fish. Limit fiber. Don t eat raw or cooked vegetables, fresh fruits except bananas, or bran cereals. Limit caffeine and chocolate. Limit dairy. Don t use spices or seasonings except salt. Go back to your normal diet over time, as you feel better and your symptoms improve. If the symptoms come back, go back to a simple diet or clear liquids. Follow-up care Follow up with your healthcare provider, or as advised. If a stool sample was taken or cultures were done, call the healthcare provider for the results as instructed. Call 911 Call 911 if you have any of these symptoms: Trouble breathing Confusion Extreme drowsiness or trouble walking Loss of consciousness Rapid heart rate Chest pain Stiff neck Seizure When to seek medical advice Call your healthcare provider right away if any of these occur: Abdominal pain that gets worse Constant lower right abdominal pain Continued vomiting and inability to keep liquids down Diarrhea more than 5 times a day Blood in vomit or stool Dark urine or no urine for 8 hours, dry mouth and tongue, tiredness, weakness, or dizziness Drowsiness New rash You don t get better in 2 to 3 days Fever of 100.4 F (38 C) or higher, or as directed by your healthcare provider [id number] [employer]. [address] [place] [address]. All rights reserved. This information is not intended as a substitute for professional medical care. Always follow your healthcare professional's instructions. Follow Up Care 10/26/2021 14:25:12 With:Follow up with primary care provider Address:Unknown When:2-4 days [facility] 10-26-2021 SARS-CoV-2 (COVID-19) RNA SYLVIE+probe Ql (Nph) Negative (10/26/21 3:04 PM) AO Auto Urine SS 10-17-2021 Note . MICRO - Microbiology PROCEDURE: Urine Culture [*1] SOURCE: Urine, Clean Catch BODY SITE: COLLECTED DATE/TIME: 10/14/2021 15:55 EDT RECEIVED DATE/TIME: 10/15/2021 14:39 EDT START DATE/TIME: 10/15/2021 14:39 EDT FREE TEXT SOURCE: FINAL REPORTS Final Report [] Verified Date/Time/Personnel: 10/17/2021 07:57 EDT 10,000 - 50,000 cfu/ml Mixed growth consistent with normal urogenital seema. PRELIMINARY REPORTS Preliminary Report [] Verified Date/Time/Personnel: 10/16/2021 10:17 EDT No growth to date Performing Locations *1: This test was performed at: [address], [address] [place] [address] ([place]) 08-22-2021 Note . MICRO - Microbiology PROCEDURE: Urine Culture [*1] SOURCE: Urine, Clean Catch BODY SITE: COLLECTED DATE/TIME: 08/19/2021 15:30 EDT RECEIVED DATE/TIME: 08/20/2021 13:37 EDT START DATE/TIME: 08/20/2021 13:37 EDT FREE TEXT SOURCE: FINAL REPORTS Final Report [] Verified Date/Time/Personnel: 08/22/2021 09:14 EDT >100,000 cfu/ml Gram Positive Rods non-spore forming Sensitivity testing is not recommended for one of the following reasons: 1. Established susceptibility patterns are available or 2. Interpretative criteria are not available. PRELIMINARY REPORTS Preliminary Report [] Verified Date/Time/Personnel: 08/21/2021 11:47 EDT No growth to date Performing Locations *1: This test was performed at: [address], [address] [place] [address] ([place]) 07-03-2021 Note . MICRO - Microbiology PROCEDURE: Urine Culture [*1] SOURCE: Urine, Clean Catch BODY SITE: COLLECTED DATE/TIME: 06/29/2021 11:43 EST RECEIVED DATE/TIME: 06/29/2021 20:09 EST START DATE/TIME: 06/29/2021 20:09 EST FREE TEXT SOURCE: AMENDED REPORTS Amended Report [] Verified Date/Time/Personnel: 07/03/2021 14:11 EST 1,000 cfu/ml Group B Beta Hemolytic Strep (Strep agalactiae) Sensitivity testing is not recommended for one of the following reasons: 1. Established susceptibility patterns are available or 2. Interpretative criteria are not available. 50,000 - 100,000 cfu/ml Mixed growth consistent with normal urogenital seema. FINAL REPORTS Final Report [] Verified Date/Time/Personnel: 07/02/2021 15:47 EST 1 colony Group B Beta Hemolytic Strep (Strep agalactiae) Sensitivity testing is not recommended for one of the following reasons: 1. Established susceptibility patterns are available or 2. Interpretative criteria are not available. 50,000 - 100,000 cfu/ml Mixed growth consistent with normal urogenital seema. PRELIMINARY REPORTS Preliminary Report [] Verified Date/Time/Personnel: 07/01/2021 14:55 EST Culture results pending. Preliminary Report [] Verified Date/Time/Personnel: 06/30/2021 10:59 EST No growth to date Performing Locations *1: This test was performed at: [facility], [address] [place] [address], [address] [place] [address] ([place]) Evaluation + Plan note No data available for this section [facility] Evaluation + Plan note Future Appointments Appointment Date:07/24/2021 09:30:00 AM Scheduled Provider:CANDICE ALVES MD Location:[facility] Appointment Type: OV Diagnostic Tests PendingRubella Antibody 06/29/21Rapid Plasma Reagin Test 06/29/21Urine Culture 06/29/21Hemoglobin Electrophoresis - Panel 06/29/21 Future Scheduled TestsType and Screen (AO) 06/26/21 [facility] Evaluation + Plan note Future Appointments Appointment Date:09/16/2021 03:30:00 PM Scheduled Provider:MICHAEL GARCÍA Location:[facility] Appointment Type: OV OB Routine Follow Up Future Scheduled TestsType and Screen (AO) 06/26/21XR Foot Minimum 3 Views Right 08/04/21 [facility] Evaluation + Plan note Future Appointments Appointment Date:10/14/2021 03:45:00 PM Scheduled Provider:MICHAEL GARCÍA Location:[facility] Appointment Type: OV OB Routine Follow Up Future Scheduled TestsType and Screen (AO) 06/26/21XR Foot Minimum 3 Views Right 08/04/21 [facility] Evaluation + Plan note Future Appointments Appointment Date:11/09/2021 03:30:00 PM Scheduled Provider:ABBIE LUNDY MD Location:[facility] Appointment Type: OV OB Routine Follow Up Future Scheduled TestsType and Screen (AO) 06/26/21XR Foot Minimum 3 Views Right 08/04/21 [facility] Evaluation + Plan note Future Appointments Appointment Date:12/03/2021 11:15:00 AM Scheduled Provider:IRMA BURGESS MD Location:[facility] Appointment Type:[facility] OB Routine Follow Up Diagnostic Tests PendingRapid Plasma Reagin Test 11/27/21Urine Culture 11/27/21 [facility] Evaluation + Plan note Future Appointments Appointment Date:01/20/2022 03:15:00 PM Scheduled Provider:MICHAEL GARCÍA Location:[facility] Appointment Type: OV OB Routine Follow Up [facility] Evaluation + Plan note Future Appointments Appointment Date:02/01/2022 03:45:00 PM Scheduled Provider:ABBIE LUNDY MD Location:[facility] Appointment Type: OV OB Routine Follow Up [facility] Evaluation + Plan note Future Appointments Appointment Date:02/01/2022 03:45:00 PM Scheduled Provider:ABBIE LUNDY MD Location:[facility] Appointment Type: OV OB Routine Follow Up Diagnostic Tests PendingRapid Plasma Reagin Test 01/29/22 [facility] Moderate episode of recurrent major depressive disorder (HCC)- [facility] No data available for this section [facility] Progress note No data available for this section [facility] Reason for referral (narrative)* Outpatient Procedure (Routine) - Pending Review Specialty Diagnoses / Procedures Referred By Contben t Referred To Contact [facility] Diagnoses ASCUS with positive high risk HPV cervical Procedures COLPOSCOPY COLPOSCOPY CERVIX BX CERVIX & ENDOCRV CURRETAGE Abhijeet Eli MD [address] [facility] [place] [address] [facility] [place] [address] [place] [address] Referral ID Status Reason Start Date Expiration Date Visits Requested Visits Authorized [id number] Pending Review Auto-Generat ed Referral 04/02/2022 04/02/2023 1 1 [facility] Summary Purpose Family History No Family History Records FoundNo Family History Records Found Advance Directives No Advanced Directives Records FoundNo Advanced Directives Records Found Additional Source Comments Care Team (unrecognized sect ion and content) Care Team Personnel Name: PHYSICIAN, NONE Position: Physician Member Role: Primary Care Physician Name: Luz Faith RN Position: OB RN Member Role: RN Care Team Related Persons Name: KENNETH SOOD Name: IRMA HOWELL Name: IMRA HOWELL Address: Home [address] [place] [phone] Care Team Personnel Name: PHYSICIAN, NONE Position: Physician Member Role: Primary Care Physician Care Team Related Persons Name: KENNETH SOOD Name: IRMA HOWELL Address: Home [address] [place] [id number] Name: IRMA HOWELL INFORMATION SOURCE (unrecogn ized section and content) DATE CREATED AUTHOR AUTHOR'S ORGANIZ ATION 03/09/2023 [facility] Source Comments (unrecognize d section and content) In the event this informatio n is protected by the Federal Confidentiality of Alcohol and Drug Abuse Patient Records regulations: The Federal rules restrict any use of the information to criminally investigate or prosecute any alcohol or drug abuse patient.[facility] the event this information is protected by the Federal Confidentiality of Alcohol and Drug Abuse Patient Records regulations: The Federal rules restrict any use of the information to criminally investigate or prosecute any alcohol or drug abuse patient.[facility] the event this information is protected by the Federal Confidentiality of Alcohol and Drug Abuse Patient Records regulations: The Federal rules restrict any use of the information to criminally investigate or prosecute any alcohol or drug abuse patient.[facility] the event this information is protected by the Federal Confidentiality of Alcohol and Drug Abuse Patient Records regulations: The Federal rules restrict any use of the information to criminally investigate or prosecute any alcohol or drug abuse patient.[facility] the event this information is protected by the Federal Confidentiality of Alcohol and Drug Abuse Patient Records regulations: The Federal rules restrict any use of the information to criminally investigate or prosecute any alcohol or drug abuse patient.[facility] Care Teams (unrecognized sec tion and content) Reason for Visit (unrecogniz ed section and content) Reason Comments Colposcopy Specialty Diagnoses / Procedures Referred By Contac t Referred To Contact [facility] Diagnoses ASCUS with positive high risk HPV cervical Procedures COLPOSCOPY COLPOSCOPY CERVIX BX CERVIX & ENDOCRV CURRKiersten Barker, FABRICATION ENGINEER.TRAMPOLINE TEAM COACH [address] [place] [address] [facility] [place] [address] [place] [address] Referral ID Status Reason Start Date Expiration Date V isits Requested Visits Authorized [id number] Closed Auto-Generate d Referral 03/29/2022 05/01/2022 1 1 Reason Comments Follow Up Specialty Diagnoses / Procedures Referred By Contac t Referred To Contact Gynecology / DIRECTOR OF EARLY CHILDHOOD Diagnoses Follow-up exam 6 week follow up Procedures OFFICE/OUTPATIENT ESTABLISHED HIGH MDM 40-54 MIN EST WHI PATIENT Self Mercedes Aguayo, SARAH.TRAMPOLINE TEAM COACH [address] [facility] [place] [address] Referral ID Status Reason Start Date Expiration Date Visits Re quested Visits Authorized [id number] Closed 08/02/2022 05/01/2023 1 1 FOR RECORDS PERTAINING TO PATIENTS WHO ARE OR HAVE BEEN ENROLLED IN A CHEMICAL DEPENDENCY/SUBSTANCEABUSE PROGRAM, SOME INFORMATION MAY BE OMITTED. This clinical summary was aggregated from multiple sources. Caution should be exercised in using it in the provision of clinical care. This summary normalizes information from multiple sources, and as a consequence, information in this document may materially change the coding, format and clinical context of patient data. In addition, data may be omitted in some cases. CLINICAL DECISIONS SHOULD BE BASED ON THE PRIMARY CLINICAL RECORDS. [employer] [facility]. provides no warranty or guarantee of the accuracy or completeness of information in this document.
== END | disposition home or self-care (01) ==
LOC: MTRAD 16:04
PROVIDERS: PCP Nurse Practitioner Family; Referring Provider Nurse Practitioner Family; Visit Provider Nurse Practitioner Family
DX: M25.552 Pain in left hip (principal); M53.3 Sacrococcygeal disorders, not elsewhere classified
CPT/HCPCS: 73502